=== PATIENT | female | born 1980 | race African-American/Black ===

== ENCOUNTER → 2019-11-17 | Day surgery (SDC) | payer OTHER ==
--- NOTE | 2019-11-19 01:50 | OP ---
DATE OF OPERATION: 11/17/2019 PREOPERATIVE DIAGNOSIS: Right breast intraductal retroareolar mass. POSTOPERATIVE DIAGNOSIS: Right breast intraductal retroareolar mass. PROCEDURE: Right breast ultrasound-guided core biopsy with bowtie clip placement. ANESTHESIA: Local. ATTENDING SURGEON: Bello Brooks MD ESTIMATED BLOOD LOSS: Minimal. COMPLICATIONS: None. DESCRIPTION OF PROCEDURE: Patient was made aware of the risks and benefits of the procedure and consented. She was placed in the supine position. Under sterile conditions with 2% lidocaine for local anesthesia, a small lily was made in the skin. Using a 13-gauge suction biopsy device via lateral approach under ultrasound guidance, multiple cores were obtained and submitted to pathology. Under ultrasound guidance, a bowtie clip was placed into the biopsy region. Steri-Strips and sterile bandage was applied. We will contact her with the results. BELLO BROOKS M.D. [id number]
--- NOTE | 2019-11-20 15:05 | PATH ---
Surgical Pathology Report Patient Name: EMILIE CORRIGAN [facility]. Rec. #: [id number] /Age/Gender: 1980 (Age: 39) / F Account: [id number] Location: [facility] RADIOLOGY U Taken: 11/17/2019 Received: 11/17/2019 Reported: 11/20/2019 Physicians: Bello Brooks M.D. Specimen(s) Received RIGHT BREAST RETRO CORE BX Clinical History None given Final Diagnosis BREAST, RIGHT, RETRO, CORE BIOPSY: BENIGN BREAST TISSUE SHOWING CYST WITH INSPISSATED CONTENTS. NEGATIVE FOR MALIGNANCY. Note: See also concurrent left breast biopsy ([id number]). Electronically Signed Cassie Arrieta M.D. Gross Description Received in formalin labeled "right breast biopsy retro", is a 2.3 x 1.4 x 0.3 cm aggregate of fragments of fibroadipose tissue admixed with abundant alvraado white material. The formalin is filtered and the specimen is entirely submitted in 2 cassettes. Time to formalin fixation: Not given Total formalin fixation time: Approximately 6 hours. /11/17/2019 saudi/11/17/2019
== END | disposition home or self-care (01) ==
LOC: FRADUS-SUR 13:21
PROVIDERS: ATTEND Surgery Surgical Oncology
PROC: 0HBT3ZX Excision of Right Breast, Percutaneous Approach, Diagnostic (ICD-10-PCS; principal; 2019-11-17)
DX: N60.01 Solitary cyst of right breast (principal); N63.10 Unspecified lump in the right breast, unspecified quadrant
CPT/HCPCS: 19083; 87899; 88305-TC; A4648

== ENCOUNTER 2019-12-07 10:53 | Day surgery (SDC) | payer OTHER ==
[2019-12-07 11:52] VITALS: BMI 35.6
[2019-12-07 12:00] LABS: BASO % 0.5 % (0-2.0); EOS % 1.4 % (0-4.5); HEMATOCRIT 40.5 % (32.4-45.2); HEMOGLOBIN 13.6 GM/dL (10.7-15.3); LYMPH % 36.2 % (8-40); MCHC 33.6 g/dl (32.0-36.0); MEAN CELL VOLUME 89.3 fl (80-96); MEAN PLT VOLUME 7.8 fl (7.5-11.1); MONO % 9.2 % (3.8-10.2); NEUT % 52.7 % (42.8-82.8); PLATELET COUNT 355 K/MM3 (134-434); RBC 4.53 M/mm3 (3.60-5.2); RDW 14.1 % (11.6-15.6); WHITE BLOOD COUNT 6.1 K/mm3 (4.0-10.0)
[2019-12-07 12:08] LABS: INR 0.97 (0.83-1.09); PROTHROMBIN TIME (PATIENT) 11.5 SEC (9.7-13.0)
[2019-12-07 16:48] VITALS: BP 109/79; PULSE 82; TEMP 97.2
== END 2019-12-07 17:00 | disposition home or self-care (01) ==
LOC: JRADIR 10:53
PROVIDERS: ATTEND Internal Medicine Hematology & Oncology
PROC: 02HV33Z Insertion of Infusion Device into Superior Vena Cava, Percutaneous Approach (ICD-10-PCS; principal; 2019-12-07)
DX: C50.912 Malignant neoplasm of unspecified site of left female breast (principal)
CPT/HCPCS: 36561; C1788; 36415; 77001-TC-FY; 84703; 85025; 85610

== ENCOUNTER 2019-12-08 07:19 | Day surgery (SDC) | payer OTHER ==
[2019-12-08 08:07] LABS: BASO % 0.6 % (0-2.0); EOS % 1.5 % (0-4.5); HEMATOCRIT 38.2 % (32.4-45.2); HEMOGLOBIN 12.8 GM/dL (10.7-15.3); MCH 29.7 pg (25.7-33.7); MCHC 33.3 g/dl (32.0-36.0); MEAN CELL VOLUME 89.2 fl (80-96); MEAN PLT VOLUME 7.6 fl (7.5-11.1); MONO % 8.6 % (3.8-10.2); NEUT % 55.3 % (42.8-82.8); PLATELET COUNT 333 K/MM3 (134-434); RBC 4.29 M/mm3 (3.60-5.2); RDW 14.3 % (11.6-15.6); WHITE BLOOD COUNT 5.9 K/mm3 (4.0-10.0)
[2019-12-08 08:32] LABS: ALBUMIN 3.6 g/dl (3.4-5.0); BILIRUBIN,DIRECT 0.1 mg/dL (0.0-0.2); BILIRUBIN,TOTAL 0.3 mg/dL (0.2-1); BLOOD UREA NITROGEN 7.7 mg/dL (7-18); MAGNESIUM 2.2 mg/dL (1.8-2.4); POTASSIUM 3.8 mmol/L (3.5-5.1); TOT PROT 7.2 g/dl (6.4-8.2)
[2019-12-08] MEDS ORDERED: ONDANSETRON 4 MG/2 ML VIAL IVPB ONE (08:58)
[2019-12-08] MEDS ORDERED: GOSERELIN ACETATE 3.6 MG IMPLANT SYRINGE SQ ONE (09:00)
[2019-12-08] MEDS ORDERED: FAMOTIDINE 20 MG/50 ML IVPB 20 MG/50 ML MG IVPB ONE (09:00)
[2019-12-08] MEDS ORDERED: DEXAMETHASONE INJECTION 10 MG, DIPHENHYDRAMINE 50 MG in SODIUM CHLORIDE 100 ML IVPB ONE (09:00)
[2019-12-08] MEDS ORDERED: LIDOCAINE HCL 1%, 10 MG/ML (20ML VIAL) ID ONE (09:30)
[2019-12-08] MEDS ORDERED: PACLITAXEL IVPB ONE (09:30)
[2019-12-08] MEDS ORDERED: SODIUM CHLORIDE IVPB ONE (09:30)
[2019-12-08 13:34] VITALS: TEMP 98.9
[2019-12-08 13:35] VITALS: BP 117/79; PULSE 80
== END 2019-12-08 12:15 | disposition home or self-care (01) ==
LOC: JONCCHEMO 07:19
PROVIDERS: ATTEND Internal Medicine Hematology & Oncology
DX: Z51.11 Encounter for antineoplastic chemotherapy (principal); C50.912 Malignant neoplasm of unspecified site of left female breast
CPT/HCPCS: 36415; 80048; 80076; 83735; 84703; 85025; 96366; 96367; 96402; 96413; J1100; J9202

== ENCOUNTER 2019-12-15 07:10 | Day surgery (SDC) | payer OTHER ==
[2019-12-15 09:13] LABS: BASO % 0.8 % (0-2.0); HEMATOCRIT 36.6 % (32.4-45.2); HEMOGLOBIN 12.3 GM/dL (10.7-15.3); LYMPH % 28.3 % (8-40); MCHC 33.7 g/dl (32.0-36.0); MEAN CELL VOLUME 89.1 fl (80-96); MONO % 6.2 % (3.8-10.2); NEUT % 62.7 % (42.8-82.8); PLATELET COUNT 320 K/MM3 (134-434); RBC 4.11 M/mm3 (3.60-5.2); RDW 14.2 % (11.6-15.6); WHITE BLOOD COUNT 6.1 K/mm3 (4.0-10.0)
[2019-12-15] MEDS ORDERED: PACLITAXEL 156 MG in SODIUM CHLORIDE 250 ML IVPB ONE (10:00)
[2019-12-15 10:08] LABS: ALBUMIN 3.6 g/dl (3.4-5.0); BILIRUBIN,TOTAL 0.4 mg/dL (0.2-1); CREATININE 0.8 mg/dL (0.55-1.3); POTASSIUM 3.5 mmol/L (3.5-5.1); TOT PROT 7.4 g/dl (6.4-8.2)
[2019-12-15] MEDS ORDERED: FAMOTIDINE 20 MG/50 ML IVPB 20 MG/50 ML MG IVPB ONE (10:30)
[2019-12-15] MEDS ORDERED: [UNRECOGNIZED DRUG - OTHER] IVPB ONE (10:30)
[2019-12-15] MEDS ORDERED: DIPHENHYDRAMINE IVPB ONE (10:30)
[2019-12-15] MEDS ORDERED: ONDANSETRON IVPB ONE (10:30)
[2019-12-15] MEDS ORDERED: DEXAMETHASONE IVPB ONE (10:30)
[2019-12-15 15:07] VITALS: BP 113/78; PULSE 82; TEMP 98.9
[2019-12-15] MEDS ORDERED: PORTA CATH FLUSH 10 ML IVPUSH ONE (15:07)
== END 2019-12-15 13:15 | disposition home or self-care (01) ==
LOC: JONCCHEMO 07:10
PROVIDERS: ATTEND Internal Medicine Hematology & Oncology
DX: Z51.11 Encounter for antineoplastic chemotherapy (principal); C50.912 Malignant neoplasm of unspecified site of left female breast
CPT/HCPCS: 36415; 80053; 85025; 96367; 96413; J1100

== ENCOUNTER 2019-12-22 07:26 | Day surgery (SDC) | payer OTHER ==
[2019-12-22] MEDS ORDERED: [UNRECOGNIZED DRUG - OTHER] IVPB ONE (09:30)
[2019-12-22] MEDS ORDERED: FAMOTIDINE 20 MG/50 ML IVPB 20 MG/50 ML MG IVPB ONE (09:30)
[2019-12-22] MEDS ORDERED: ONDANSETRON IVPB ONE (09:30)
[2019-12-22] MEDS ORDERED: DEXAMETHASONE SODIUM PHOSPHATE IVPB ONE (09:30)
[2019-12-22 09:44] LABS: EOS % 1.6 % (0-4.5); HEMOGLOBIN 11.8 GM/dL (10.7-15.3); MCH 30.1 pg (25.7-33.7); MCHC 33.6 g/dl (32.0-36.0); MEAN CELL VOLUME 89.5 fl (80-96); MONO % 6.9 % (3.8-10.2); NEUT % 56.5 % (42.8-82.8); PLATELET COUNT 385 K/MM3 (134-434); RBC 3.91 M/mm3 (3.60-5.2); RDW 14.4 % (11.6-15.6); WHITE BLOOD COUNT 5.4 K/mm3 (4.0-10.0)
[2019-12-22] MEDS ORDERED: DEXAMETHASONE SOD PHOSPHATE 10 MG/1 ML VIAL IVPB ONE (09:45)
[2019-12-22] MEDS ORDERED: PACLITAXEL 156 MG in SODIUM CHLORIDE 250 ML IVPB ONE (10:00)
[2019-12-22 10:11] LABS: ALBUMIN 3.6 g/dl (3.4-5.0); BILIRUBIN,TOTAL 0.4 mg/dL (0.2-1); BLOOD UREA NITROGEN 6.9 mg/dL (7-18); CALCIUM 8.9 mg/dL (8.5-10.1); CREATININE 0.9 mg/dL (0.55-1.3); POTASSIUM 3.5 mmol/L (3.5-5.1); TOT PROT 7.2 g/dl (6.4-8.2)
[2019-12-22] MEDS ORDERED: DEXAMETHASONE SODIUM PHOSPHATE 10 MG, ONDANSETRON INJECTION 8 MG, DIPHENHYDRAMINE 50 MG... IVPB ONE (10:15)
[2019-12-22 14:52] VITALS: TEMP 98.8
[2019-12-22 15:48] VITALS: BP 115/62
[2019-12-22 15:49] VITALS: PULSE 78
== END 2019-12-22 13:15 | disposition home or self-care (01) ==
LOC: JONCCHEMO 07:26
PROVIDERS: ATTEND Internal Medicine Hematology & Oncology
PROC: 3E04305 Introduction of Other Antineoplastic into Central Vein, Percutaneous Approach (ICD-10-PCS; principal; 2019-12-22)
PROC: 3E043GC Introduction of Other Therapeutic Substance into Central Vein, Percutaneous Approach (ICD-10-PCS; 2019-12-22)
DX: Z51.11 Encounter for antineoplastic chemotherapy (principal); C50.912 Malignant neoplasm of unspecified site of left female breast; I10 Essential (primary) hypertension
CPT/HCPCS: 36415; 80053; 85025; 96367; 96413; J2405

== ENCOUNTER 2019-12-29 07:17 | Day surgery (SDC) | payer OTHER ==
[2019-12-29 09:16] LABS: BASO % 0.5 % (0-2.0); EOS % 1.1 % (0-4.5); HEMATOCRIT 36.1 % (32.4-45.2); HEMOGLOBIN 12.1 GM/dL (10.7-15.3); LYMPH % 33.1 % (8-40); MCHC 33.5 g/dl (32.0-36.0); MEAN CELL VOLUME 89.6 fl (80-96); MEAN PLT VOLUME 7.4 fl (7.5-11.1); MONO % 6.1 % (3.8-10.2); NEUT % 59.2 % (42.8-82.8); PLATELET COUNT 429 K/MM3 (134-434); RBC 4.03 M/mm3 (3.60-5.2); RDW 14.1 % (11.6-15.6); WHITE BLOOD COUNT 5.4 K/mm3 (4.0-10.0)
[2019-12-29] MEDS ORDERED: DEXAMETHASONE SOD PHOSPHATE 20 MG/5 ML VIAL IVPB ONE (09:26)
[2019-12-29] MEDS ORDERED: ONDANSETRON 4 MG/2 ML VIAL IVPB ONE (09:27)
[2019-12-29 09:52] LABS: ALBUMIN 3.6 g/dl (3.4-5.0); BILIRUBIN,TOTAL 0.2 mg/dL (0.2-1); BLOOD UREA NITROGEN 5.7 mg/dL (7-18); POTASSIUM 3.7 mmol/L (3.5-5.1); TOT PROT 7.1 g/dl (6.4-8.2)
[2019-12-29] MEDS ORDERED: DEXAMETHASONE SODIUM PHOSPHATE IVPB ONE ×2 (10:00)
[2019-12-29] MEDS ORDERED: [UNRECOGNIZED DRUG - OTHER] IVPB ONE (10:00)
[2019-12-29] MEDS ORDERED: [UNRECOGNIZED DRUG - OTHER] IVPB ONE (10:00)
[2019-12-29] MEDS ORDERED: ONDANSETRON IVPB ONE ×2 (10:00)
[2019-12-29] MEDS ORDERED: FAMOTIDINE 20 MG/50 ML IVPB 20 MG/50 ML MG IVPB ONE (10:00)
[2019-12-29] MEDS ORDERED: PACLITAXEL 156 MG in SODIUM CHLORIDE 250 ML IVPB ONE (10:30)
[2019-12-29 14:00] VITALS: BP 110/69; PULSE 78; TEMP 98.8
[2019-12-29] MEDS ORDERED: PORTA CATH FLUSH 10 ML IVPUSH ONE (14:00)
== END 2019-12-29 13:00 | disposition home or self-care (01) ==
LOC: JONCCHEMO 07:17
PROVIDERS: ATTEND Internal Medicine Hematology & Oncology
PROC: 3E04305 Introduction of Other Antineoplastic into Central Vein, Percutaneous Approach (ICD-10-PCS; principal; 2019-12-29)
PROC: 3E043GC Introduction of Other Therapeutic Substance into Central Vein, Percutaneous Approach (ICD-10-PCS; 2019-12-29)
DX: Z51.11 Encounter for antineoplastic chemotherapy (principal); C50.912 Malignant neoplasm of unspecified site of left female breast
CPT/HCPCS: 36415; 80053; 85025; 96367; 96413

== ENCOUNTER 2020-01-05 07:23 | Day surgery (SDC) | payer OTHER ==
[2020-01-05 09:39] LABS: BASO % 0.9 % (0-2.0); EOS % 0.8 % (0-4.5); HEMATOCRIT 37.5 % (32.4-45.2); HEMOGLOBIN 12.6 GM/dL (10.7-15.3); LYMPH % 34.2 % (8-40); MCH 30.1 pg (25.7-33.7); MCHC 33.7 g/dl (32.0-36.0); MEAN CELL VOLUME 89.3 fl (80-96); MEAN PLT VOLUME 7.8 fl (7.5-11.1); NEUT % 58.1 % (42.8-82.8); PLATELET COUNT 404 K/MM3 (134-434); RDW 14.3 % (11.6-15.6); WHITE BLOOD COUNT 5.9 K/mm3 (4.0-10.0)
[2020-01-05] MEDS ORDERED: GOSERELIN ACETATE 3.6 MG IMPLANT SYRINGE SQ ONE (10:00)
[2020-01-05] MEDS ORDERED: FAMOTIDINE 20 MG/50 ML IVPB 20 MG/50 ML MG IVPB ONE (10:00)
[2020-01-05] MEDS ORDERED: DEXAMETHASONE SODIUM PHOSPHATE IVPB ONE (10:00)
[2020-01-05] MEDS ORDERED: ONDANSETRON IVPB ONE (10:00)
[2020-01-05] MEDS ORDERED: [UNRECOGNIZED DRUG - OTHER] IVPB ONE (10:00)
[2020-01-05] MEDS ORDERED: LIDOCAINE HCL 1%, 10 MG/ML (20ML VIAL) ID ONE (10:00)
[2020-01-05 10:19] LABS: POTASSIUM 3.3 mmol/L (3.5-5.1)
[2020-01-05 10:25] LABS: BILIRUBIN,TOTAL 0.3 mg/dL (0.2-1); BLOOD UREA NITROGEN 7.9 mg/dL (7-18); CALCIUM 9.2 mg/dL (8.5-10.1); CREATININE 0.9 mg/dL (0.55-1.3); TOT PROT 7.8 g/dl (6.4-8.2)
[2020-01-05] MEDS ORDERED: PACLITAXEL 156 MG in SODIUM CHLORIDE 250 ML IVPB ONE (10:30)
[2020-01-05] MEDS ORDERED: DEXAMETHASONE SOD PHOSPHATE 4 MG/1 ML VIAL IVPB ONE (10:30)
[2020-01-05] MEDS ORDERED: DEXAMETHASONE SODIUM PHOSPHATE 10 MG, ONDANSETRON INJECTION 8 MG, DIPHENHYDRAMINE 50 MG... IVPB ONE (10:45)
[2020-01-05] MEDS ORDERED: POTASSIUM CHLORIDE TABS 20 MEQ TABLET.ER (FP) PO ONE (11:45)
[2020-01-05] MEDS ORDERED: PORTA CATH FLUSH 10 ML IVPUSH ONE (14:15)
[2020-01-05 14:16] VITALS: BP 123/82; PULSE 82; TEMP 98.8
== END 2020-01-05 13:45 | disposition home or self-care (01) ==
LOC: JONCCHEMO 07:23
PROVIDERS: ATTEND Internal Medicine Hematology & Oncology
DX: Z51.11 Encounter for antineoplastic chemotherapy (principal); C50.912 Malignant neoplasm of unspecified site of left female breast
CPT/HCPCS: 36415; 80053; 85025; 96367; 96402; 96413; J9202

== ENCOUNTER 2020-01-12 07:29 | Day surgery (SDC) | payer OTHER ==
[2020-01-12 09:22] LABS: EOS % 1.3 % (0-4.5); HEMATOCRIT 34.9 % (32.4-45.2); HEMOGLOBIN 11.9 GM/dL (10.7-15.3); LYMPH % 36.9 % (8-40); MCH 30.6 pg (25.7-33.7); MCHC 34.1 g/dl (32.0-36.0); MEAN CELL VOLUME 89.9 fl (80-96); MEAN PLT VOLUME 7.8 fl (7.5-11.1); MONO % 6.5 % (3.8-10.2); NEUT % 54.3 % (42.8-82.8); PLATELET COUNT 348 K/MM3 (134-434); RBC 3.88 M/mm3 (3.60-5.2); RDW 14.4 % (11.6-15.6); WHITE BLOOD COUNT 6.3 K/mm3 (4.0-10.0)
[2020-01-12 09:50] LABS: ALBUMIN 3.6 g/dl (3.4-5.0); BILIRUBIN,TOTAL 0.3 mg/dL (0.2-1); BLOOD UREA NITROGEN 10.5 mg/dL (7-18); CALCIUM 9.1 mg/dL (8.5-10.1); CREATININE 0.9 mg/dL (0.55-1.3); MAGNESIUM 2.2 mg/dL (1.8-2.4); POTASSIUM 3.8 mmol/L (3.5-5.1); TOT PROT 6.9 g/dl (6.4-8.2)
[2020-01-12] MEDS ORDERED: FAMOTIDINE 20 MG/50 ML IVPB 20 MG/50 ML MG IVPB ONE (10:00)
[2020-01-12] MEDS ORDERED: ONDANSETRON IVPB ONE (10:00)
[2020-01-12] MEDS ORDERED: [UNRECOGNIZED DRUG - OTHER] IVPB ONE (10:00)
[2020-01-12] MEDS ORDERED: DEXAMETHASONE SODIUM PHOSPHATE IVPB ONE (10:00)
[2020-01-12] MEDS ORDERED: PACLITAXEL 144 MG in SODIUM CHLORIDE 250 ML IVPB ONE (10:30)
[2020-01-12 14:50] VITALS: TEMP 98.8
[2020-01-12 14:54] VITALS: BP 113/72; PULSE 75
[2020-01-12] MEDS ORDERED: PORTA CATH FLUSH 10 ML IVPUSH ONE (14:54)
== END 2020-01-12 13:05 | disposition home or self-care (01) ==
LOC: JONCCHEMO 07:29
PROVIDERS: ATTEND Internal Medicine Hematology & Oncology
DX: Z51.11 Encounter for antineoplastic chemotherapy (principal); C50.912 Malignant neoplasm of unspecified site of left female breast
CPT/HCPCS: 36415; 80053; 83735; 85025; 96367; 96413

== ENCOUNTER 2020-01-19 07:07 | Day surgery (SDC) | payer OTHER ==
[2020-01-19] MEDS ORDERED: DEXAMETHASONE SODIUM PHOSPHATE IVPB ONE (10:00)
[2020-01-19] MEDS ORDERED: FAMOTIDINE 20 MG/50 ML IVPB 20 MG/50 ML MG IVPB ONE (10:00)
[2020-01-19] MEDS ORDERED: [UNRECOGNIZED DRUG - OTHER] IVPB ONE (10:00)
[2020-01-19] MEDS ORDERED: ONDANSETRON IVPB ONE (10:00)
[2020-01-19 10:01] LABS: BASO % 0.7 % (0-2.0); HEMATOCRIT 36.3 % (32.4-45.2); HEMOGLOBIN 12.2 GM/dL (10.7-15.3); LYMPH % 28.3 % (8-40); MCH 29.8 pg (25.7-33.7); MCHC 33.6 g/dl (32.0-36.0); MEAN CELL VOLUME 88.6 fl (80-96); MEAN PLT VOLUME 7.9 fl (7.5-11.1); MONO % 5.6 % (3.8-10.2); NEUT % 64.4 % (42.8-82.8); PLATELET COUNT 382 K/MM3 (134-434); RBC 4.09 M/mm3 (3.60-5.2); RDW 14.4 % (11.6-15.6); WHITE BLOOD COUNT 8.2 K/mm3 (4.0-10.0)
[2020-01-19] MEDS ORDERED: PACLITAXEL 150 MG in SODIUM CHLORIDE 250 ML IVPB ONE (10:30)
[2020-01-19 10:31] LABS: ALBUMIN 3.7 g/dl (3.4-5.0); BILIRUBIN,TOTAL 0.2 mg/dL (0.2-1); BLOOD UREA NITROGEN 19.3 mg/dL (7-18); CALCIUM 9.6 mg/dL (8.5-10.1); POTASSIUM 3.5 mmol/L (3.5-5.1); TOT PROT 7.4 g/dl (6.4-8.2)
[2020-01-19 14:22] VITALS: TEMP 98.5
[2020-01-19 14:24] VITALS: BP 123/78; PULSE 89
== END 2020-01-19 13:30 | disposition home or self-care (01) ==
LOC: JONCCHEMO 07:07
PROVIDERS: ATTEND Internal Medicine Hematology & Oncology
DX: Z51.11 Encounter for antineoplastic chemotherapy (principal); C50.912 Malignant neoplasm of unspecified site of left female breast
CPT/HCPCS: 36415; 80053; 85025; 96367; 96375; 96413

== ENCOUNTER 2020-01-26 07:31 | Day surgery (SDC) | payer OTHER ==
[2020-01-26] MEDS ORDERED: DEXAMETHASONE IVPB ONE (10:00)
[2020-01-26] MEDS ORDERED: ONDANSETRON IVPB ONE (10:00)
[2020-01-26] MEDS ORDERED: [UNRECOGNIZED DRUG - OTHER] IVPB ONE (10:00)
[2020-01-26] MEDS ORDERED: FAMOTIDINE 20 MG/50 ML IVPB 20 MG/50 ML MG IVPB ONE (10:00)
[2020-01-26] MEDS ORDERED: DIPHENHYDRAMINE IVPB ONE (10:00)
[2020-01-26 10:26] LABS: BASO % 0.8 % (0-2.0); HEMATOCRIT 34.9 % (32.4-45.2); HEMOGLOBIN 11.6 GM/dL (10.7-15.3); MCH 29.6 pg (25.7-33.7); MCHC 33.1 g/dl (32.0-36.0); MEAN CELL VOLUME 89.5 fl (80-96); MEAN PLT VOLUME 7.8 fl (7.5-11.1); MONO % 4.3 % (3.8-10.2); NEUT % 61.9 % (42.8-82.8); PLATELET COUNT 347 K/MM3 (134-434); RDW 14.7 % (11.6-15.6); WHITE BLOOD COUNT 6.8 K/mm3 (4.0-10.0)
[2020-01-26] MEDS ORDERED: PACLITAXEL 150 MG in SODIUM CHLORIDE 250 ML IVPB ONE (10:30)
[2020-01-26 10:58] LABS: ALBUMIN 3.6 g/dl (3.4-5.0); BILIRUBIN,TOTAL 0.2 mg/dL (0.2-1); BLOOD UREA NITROGEN 7.1 mg/dL (7-18); CALCIUM 8.9 mg/dL (8.5-10.1); CREATININE 0.9 mg/dL (0.55-1.3); POTASSIUM 3.8 mmol/L (3.5-5.1); TOT PROT 6.9 g/dl (6.4-8.2)
[2020-01-26 15:30] VITALS: TEMP 98.3
[2020-01-26 16:06] VITALS: BP 121/68; PULSE 70
[2020-01-26] MEDS ORDERED: PORTA CATH FLUSH 10 ML IVPUSH ONE (16:06)
== END 2020-01-26 14:00 | disposition home or self-care (01) ==
LOC: JONCCHEMO 07:31
PROVIDERS: ATTEND Internal Medicine Hematology & Oncology
PROC: 3E04305 Introduction of Other Antineoplastic into Central Vein, Percutaneous Approach (ICD-10-PCS; principal; 2020-01-26)
PROC: 3E043GC Introduction of Other Therapeutic Substance into Central Vein, Percutaneous Approach (ICD-10-PCS; 2020-01-26)
DX: Z51.11 Encounter for antineoplastic chemotherapy (principal); C50.912 Malignant neoplasm of unspecified site of left female breast
CPT/HCPCS: 36415; 80053; 85025; 96367; 96413; J1100

== ENCOUNTER 2020-02-02 07:18 | Day surgery (SDC) | payer OTHER ==
[2020-02-02 09:14] LABS: EOS % 1.4 % (0-4.5); HEMATOCRIT 35.1 % (32.4-45.2); LYMPH % 35.5 % (8-40); MCH 30.9 pg (25.7-33.7); MCHC 34.3 g/dl (32.0-36.0); MEAN PLT VOLUME 7.7 fl (7.5-11.1); MONO % 8.6 % (3.8-10.2); NEUT % 53.5 % (42.8-82.8); PLATELET COUNT 349 K/MM3 (134-434); RDW 14.6 % (11.6-15.6); WHITE BLOOD COUNT 6.8 K/mm3 (4.0-10.0)
[2020-02-02] MEDS ORDERED: FAMOTIDINE 20 MG/50 ML IVPB 20 MG/50 ML MG IVPB ONE (09:30)
[2020-02-02] MEDS ORDERED: [UNRECOGNIZED DRUG - OTHER] IVPB ONE (09:30)
[2020-02-02] MEDS ORDERED: DEXAMETHASONE SODIUM PHOSPHATE IVPB ONE (09:30)
[2020-02-02] MEDS ORDERED: ONDANSETRON IVPB ONE (09:30)
[2020-02-02 09:52] LABS: BILIRUBIN,TOTAL 0.3 mg/dL (0.2-1); BLOOD UREA NITROGEN 12.1 mg/dL (7-18); CALCIUM 9.1 mg/dL (8.5-10.1); CREATININE 0.9 mg/dL (0.55-1.3); POTASSIUM 3.4 mmol/L (3.5-5.1); TOT PROT 7.4 g/dl (6.4-8.2)
[2020-02-02] MEDS ORDERED: PACLITAXEL 150 MG in SODIUM CHLORIDE 250 ML IVPB ONE (10:00)
[2020-02-02] MEDS ORDERED: LIDOCAINE HCL 1%, 10 MG/ML (20ML VIAL) ID ONE (10:00)
[2020-02-02] MEDS ORDERED: GOSERELIN ACETATE 3.6 MG IMPLANT SYRINGE SQ ONE (10:00)
[2020-02-02 13:55] VITALS: BP 126/89; PULSE 109; TEMP 98.8
[2020-02-02] MEDS ORDERED: PORTA CATH FLUSH 10 ML IVPUSH ONE (13:55)
== END 2020-02-02 13:25 | disposition home or self-care (01) ==
LOC: JONCCHEMO 07:18
PROVIDERS: ATTEND Internal Medicine Hematology & Oncology
DX: Z51.11 Encounter for antineoplastic chemotherapy (principal); C50.912 Malignant neoplasm of unspecified site of left female breast
CPT/HCPCS: 36415; 80053; 85025; 96367; 96372; 96413; J2405; J9202

== ENCOUNTER 2020-02-16 06:40 | Day surgery (SDC) | payer OTHER ==
--- OUTSIDE RECORDS SUMMARY | 2020-02-16 06:44 | XMS ---
:1980 Demographics Address [address] [place] [address] Preferred Language Greek Marital Status Unknown Voodoo Affiliation NO Race BL Ethnic Group Unknown Author Organization [facility] Support Name Relationship Address Phone [facility]available [address] [place] [address] BRIELLE CORRIGAN MOTHER [address] [place] [address] [facility]available [address] [place] [address] [facility] Unavailable [address] [facility] [facility] [place] [address] ISAAC HIGUERA [address] [place] [address] Re-disclosure Warning The records that you are about to access may contain information from federally- assisted alcohol or drug abuse programs. If such information is present, then the following federally mandated warning applies: This information has been disclosed to you from records protected by federal confidentiality rules (42 CFR part 2). The federal rules prohibit you from making any further disclosure of this information unless further disclosure is expressly permitted by the written consent of the person to whom it pertains or as otherwise permitted by 42 CFR part 2. A general authorization for the release of medical or other information is NOT sufficient for this purpose. The Federal rules restrict any use of the information to criminally investigate or prosecute any alcohol or drug abuse patient.The records that you are about to access may contain highly sensitive health information, the redisclosure of which is protected by Article 27-F of the [facility] Public Health law. If you continue you may haveaccess to information: Regarding HIV / AIDS; Provided by facilities licensed or operated by the [facility] Office of Mental Health; or Provided by the [facility] Office for People With Developmental Disabilities. If such information is present, then the following [facility] mandated warning applies: This information has been disclosed to you from confidential records which are protected by state law. State law prohibits you from making any further disclosure of this information without the specific written consent of the person to whom it pertains, or as otherwise permitted by law. Any unauthorized further disclosure in violation of state law may result in a fine or fpc sentence or both. A general authorization for the release of medical or other information is NOT sufficient authorization for further disclosure. Insurance Providers Payer name Policy type Policy ID Covered Covered libertarian's Policy P gentry / Coverage libertarian ID relationship to [place] Inf ormation type [place] LOCAL 1199 - [id number] SP [id number] [facility] 1199 - [id number] SP [id number] [facility] 1199 - [id number] SP [id number] [facility] [id number] SP [id number] Results ID Date Data Source [id number] 12/05/2019 09:46:00 AM EDT [facility] alth System Name Value Range Interpretation Code Description Data Xuan rce(s) Supporting Document(s ) SARS-CoV-2 [facility] Ql ABENA+probe [facility] by [facility]. ID Date Data Source [id number] 11/28/2019 10:23:00 AM EDT [facility]th System Name Value Range Interpretation Code Description Data Xuan rce(s) Supporting Document(s ) SARS-CoV-2 [facility] Ql ABENA+probe This lab [facility] reported by [facility]. ID Date Data Source [id number] 11/23/2019 09:07:00 AM EDT [facility] alth System Name Value Range Interpretation Code Description Data Xuan rce(s) Supporting Document(s ) SARS-CoV-2 [facility] Ql ABENA+probe This lab was [facility] a [facility] reported by [facility]. ID Date Data Source [id number] 11/22/2019 03:35:00 PM EDT [facility]th System Name Value Range Interpretation Code Description Data Xuan rce(s) Supporting Document(s ) SARS-CoV-2 [facility] Ql ABENA+probe This lab was [facility] a nd reported by [facility]. Procedure
[2020-02-16 09:28] LABS: BASO % 0.8 % (0-2.0); EOS % 1.2 % (0-4.5); HEMATOCRIT 33.5 % (32.4-45.2); HEMOGLOBIN 11.4 GM/dL (10.7-15.3); LYMPH % 32.3 % (8-40); MCHC 34.1 g/dl (32.0-36.0); MEAN CELL VOLUME 90.9 fl (80-96); MEAN PLT VOLUME 7.8 fl (7.5-11.1); MONO % 6.3 % (3.8-10.2); NEUT % 59.4 % (42.8-82.8); PLATELET COUNT 395 K/MM3 (134-434); RBC 3.69 M/mm3 (3.60-5.2); RDW 15.2 % (11.6-15.6); WHITE BLOOD COUNT 7.4 K/mm3 (4.0-10.0)
[2020-02-16] MEDS ORDERED: DEXAMETHASONE SODIUM PHOSPHATE IVPB ONE (09:30)
[2020-02-16] MEDS ORDERED: FAMOTIDINE 20 MG/50 ML IVPB 20 MG/50 ML MG IVPB ONE (09:30)
[2020-02-16] MEDS ORDERED: ONDANSETRON IVPB ONE (09:30)
[2020-02-16] MEDS ORDERED: [UNRECOGNIZED DRUG - OTHER] IVPB ONE (09:30)
[2020-02-16 09:53] LABS: ALBUMIN 3.7 g/dl (3.4-5.0); BILIRUBIN,TOTAL 0.4 mg/dL (0.2-1); BLOOD UREA NITROGEN 8.7 mg/dL (7-18); CALCIUM 9.4 mg/dL (8.5-10.1); CREATININE 0.9 mg/dL (0.55-1.3); MAGNESIUM 2.2 mg/dL (1.8-2.4); POTASSIUM 3.3 mmol/L (3.5-5.1)
[2020-02-16] MEDS ORDERED: PACLITAXEL 150 MG in SODIUM CHLORIDE 250 ML IVPB ONE (10:00)
[2020-02-16 11:42] LABS: PLATELET ESTIMATE NORMAL
[2020-02-16 14:39] VITALS: TEMP 98.4
[2020-02-16 14:40] VITALS: BP 129/71; PULSE 95
== END 2020-02-16 13:10 | disposition home or self-care (01) ==
LOC: JONCCHEMO 06:40
PROVIDERS: ATTEND Internal Medicine Hematology & Oncology
PROC: 3E04305 Introduction of Other Antineoplastic into Central Vein, Percutaneous Approach (ICD-10-PCS; principal; 2020-02-16)
PROC: 3E043GC Introduction of Other Therapeutic Substance into Central Vein, Percutaneous Approach (ICD-10-PCS; 2020-02-16)
DX: Z51.11 Encounter for antineoplastic chemotherapy (principal); C50.912 Malignant neoplasm of unspecified site of left female breast; I10 Essential (primary) hypertension
CPT/HCPCS: 36415; 80053; 83735; 85025; 96367; 96413; J2405

== ENCOUNTER 2020-02-23 06:46 | Day surgery (SDC) | payer OTHER ==
--- OUTSIDE RECORDS SUMMARY | 2020-02-23 06:53 | XMS ---
:1980 Demographics Address [address] [place] [address] Preferred Language Chadian Marital Status Unknown Rastafarian Affiliation NO Race BL Ethnic Group Unknown Author Organization [facility] Support Name Relationship Address Phone [facility] Unavailable [address] [address] BRIELLE CORRIGAN MOTHER [address] [place] [address] [facility] Unavailable [address] [place] [address] [facility] Unavailable [address] [facility] [place] [address] ISAAC HIGUERA [address] [place] [address] Re-disclosure Warning The records that you are [...] is protected by Article 27-F of the [facility] Public Health law. If you continue you may haveaccess to information: Regarding HIV / AIDS; Provided by facilities licensed or operated by the [facility] Office of Mental Health; or Provided by the [facility] Office for People With Developmental Disabilities. If such information is present, then the following [facility] mandated warning applies: This information [...] law may result in a fine or long term sentence or both. A general authorization for the release of medical or other information is NOT sufficient authorization for further disclosure. Insurance Providers Payer name Policy type Policy ID Covered Covered green party's Policy P gentry / Coverage green party ID relationship to [place] Inf ormation type [place] LOCAL 1199 - [id number] SP [id number] [facility] [id number] - [id number] SP [id number] [facility] 1199 - [id number] SP [id number] [facility] [id number] SP [id number] Results ID Date Data Source [id number] 12/05/2019 09:46:00 AM EDT [facility] alth System Name Value Range Interpretation Code Description Data Xuan rce(s) Supporting Document(s ) SARS-CoV-2 [facility] Resp Health System Ql ABENA+probe This lab was ordered by [facility] a nd reported by [facility]. ID Date Data Source [id number] 11/28/2019 10:23:00 AM EDT [facility] alth System Name Value Range Interpretation Code Description Data Xuan rce(s) Supporting Document(s ) SARS-CoV-2 [facility] Ql ABENA+probe This lab was ordered by [facility] a nd reported by [facility]. ID Date Data Source [id number] 11/23/2019 09:07:00 AM EDT [facility]th System Name Value Range Interpretation Code Description Data Xuan rce(s) Supporting Document(s ) SARS-CoV-2 [facility] Ql ABENA+probe This lab was ordered by [facility] a nd reported by [facility]. ID Date Data Source [id number] 11/22/2019 03:35:00 PM EDT [facility] System Name Value Range Interpretation Code Description Data Xuan rce(s) Supporting Document(s ) SARS-CoV-2 [facility] Ql ABENA+probe This lab was ordered by [facility] a nd reported by [facility]. Procedure
[2020-02-23 09:29] LABS: BASO % 1.1 % (0-2.0); EOS % 1.3 % (0-4.5); HEMATOCRIT 32.5 % (32.4-45.2); HEMOGLOBIN 11.3 GM/dL (10.7-15.3); LYMPH % 33.5 % (8-40); MCH 31.6 pg (25.7-33.7); MCHC 34.7 g/dl (32.0-36.0); MEAN PLT VOLUME 7.6 fl (7.5-11.1); MONO % 6.1 % (3.8-10.2); PLATELET COUNT 413 K/MM3 (134-434); RBC 3.57 M/mm3 (3.60-5.2); RDW 15.5 % (11.6-15.6); WHITE BLOOD COUNT 7.2 K/mm3 (4.0-10.0)
[2020-02-23 09:46] LABS: ALBUMIN 3.7 g/dl (3.4-5.0); BILIRUBIN,TOTAL 0.5 mg/dL (0.2-1); BLOOD UREA NITROGEN 8.6 mg/dL (7-18); CREATININE 0.9 mg/dL (0.55-1.3); POTASSIUM 3.7 mmol/L (3.5-5.1)
[2020-02-23] MEDS ORDERED: ONDANSETRON IVPB ONE (10:00)
[2020-02-23] MEDS ORDERED: DEXAMETHASONE SODIUM PHOSPHATE IVPB ONE (10:00)
[2020-02-23] MEDS ORDERED: FAMOTIDINE 20 MG/50 ML IVPB 20 MG/50 ML MG IVPB ONE (10:00)
[2020-02-23] MEDS ORDERED: [UNRECOGNIZED DRUG - OTHER] IVPB ONE (10:00)
[2020-02-23] MEDS ORDERED: PACLITAXEL 150 MG in SODIUM CHLORIDE 250 ML IVPB ONE (10:30)
[2020-02-23 14:35] VITALS: TEMP 98.4
[2020-02-23 14:41] VITALS: BP 119/77; PULSE 94
== END 2020-02-23 13:00 | disposition home or self-care (01) ==
LOC: JONCCHEMO 06:46
PROVIDERS: ATTEND Internal Medicine Hematology & Oncology
DX: Z51.11 Encounter for antineoplastic chemotherapy (principal); C50.912 Malignant neoplasm of unspecified site of left female breast
CPT/HCPCS: 36415; 80053; 83735; 85025; 96367; 96413

== ENCOUNTER 2020-03-08 07:26 | Day surgery (SDC) | payer OTHER ==
--- OUTSIDE RECORDS SUMMARY | 2020-03-08 07:28 | XMS ---
:1980 Demographics Address [address] [place] [address] Preferred Language Kosovan Marital Status Unknown Congregational Affiliation NO Race BL Ethnic Group Unknown Author Organization [facility] Support Name Relationship Address Phone [facility] Unavailable [address] [place] [address] BRIELLE CORRIGAN MOTHER [address] [facility] [place] [address] [facility] Unavailable [address] [place] [address] [facility]available [address] [facility] [place] [address] ISAAC HIGUERA [address] [facility] [address] [facility] [address] [phone] [place] [address] Re-disclosure Warning The records that you are [...] is protected by Article 27-F of the [facility] Public Health law. If you continue you may haveaccess to information: Regarding HIV / AIDS; Provided by facilities licensed or operated by the [facility] Office of Mental Health; or Provided by the [facility] Office for People With Developmental Disabilities. If such information is present, then the following [facility] mandated warning applies: This information has been [...] law may result in a fine or senior care sentence or both. A general authorization for the release of medical or other information is NOT sufficient authorization for further disclosure. Insurance Providers Payer name Policy type Policy ID Covered Covered alliance party's Policy P gentry / Coverage alliance party ID relationship to [place] Inf ormation type [place] LOCAL 1199 - [id number] SP [id number] [facility] 1199 - [id number] SP [id number] [facility] 1199 - [id number] SP [id number] [facility] [id number] SP [id number] Results ID Date Data Source [id number] 12/05/2019 09:46:00 AM EDT [facility] alth System Name Value Range Interpretation Code Description Data Xuan rce(s) Supporting Document(s ) SARS-CoV-2 [facility] Ql ABENA+probe This lab was ordered by [facility] a nd reported by [facility]. ID Date Data Source [id number] 11/28/2019 10:23:00 AM EDT [facility] alth System Name Value Range Interpretation Code Description Data Xuan rce(s) Supporting Document(s ) SARS-CoV-2 [facility] Ql ABENA+probe This lab was ordered by [facility] a nd reported by [facility]. ID Date Data Source [id number] 11/23/2019 09:07:00 AM EDT [facility] System Name Value Range Interpretation Code Description Data Xuan rce(s) Supporting Document(s ) SARS-CoV-2 [facility] Ql ABENA+probe This lab was ordered by [facility] a nd reported by [facility]. ID Date Data Source [id number] 11/22/2019 03:35:00 PM EDT [facility] System Name Value Range Interpretation Code Description Data Xuan rce(s) Supporting Document(s ) SARS-CoV-2 [facility] Ql ABENA+probe This lab was ordered by [facility] a nd reported by [facility]. Procedure
[2020-03-08 09:45] LABS: BASO % 0.4 % (0-2.0); EOS % 1.6 % (0-4.5); LYMPH % 28.5 % (8-40); MCH 30.4 pg (25.7-33.7); MCHC 33.4 g/dl (32.0-36.0); MEAN PLT VOLUME 8.2 fl (7.5-11.1); MONO % 9.5 % (3.8-10.2); PLATELET COUNT 430 K/MM3 (134-434); RBC 3.95 M/mm3 (3.60-5.2); RDW 15.8 % (11.6-15.6); WHITE BLOOD COUNT 8.8 K/mm3 (4.0-10.0)
[2020-03-08] MEDS ORDERED: FOSAPREPITANT DIMEGLUMINE 150 MG in SODIUM CHLORIDE 150 ML IVPB ONE (10:00)
[2020-03-08] MEDS ORDERED: DEXAMETHASONE SODIUM PHOSPHATE 10 MG in SODIUM CHLORIDE 50 ML IVPB ONE (10:00)
[2020-03-08] MEDS ORDERED: PALONOSETRON HCL 0.25 MG/5 ML VIAL IVPUSH ONE (10:00)
[2020-03-08 10:09] LABS: ALBUMIN 3.9 g/dl (3.4-5.0); BILIRUBIN,TOTAL 0.5 mg/dL (0.2-1); BLOOD UREA NITROGEN 8.3 mg/dL (7-18); CALCIUM 9.5 mg/dL (8.5-10.1); MAGNESIUM 2.2 mg/dL (1.8-2.4); POTASSIUM 3.6 mmol/L (3.5-5.1); TOT PROT 7.5 g/dl (6.4-8.2)
[2020-03-08] MEDS ORDERED: SODIUM CHLORIDE 500 ML IV ONE (10:12)
[2020-03-08] MEDS ORDERED: SODIUM CHLORIDE IV ONE (10:30)
[2020-03-08] MEDS ORDERED: DOXORUBICIN HCL IV ONE (10:30)
[2020-03-08] MEDS ORDERED: [UNRECOGNIZED DRUG - OTHER] IVPB ONE (11:00)
[2020-03-08] MEDS ORDERED: CYCLOPHOSPHAMIDE IVPB ONE (11:00)
[2020-03-08] MEDS ORDERED: PEGFILGRASTIM (NEULASTA ONPRO) 6 MG/0.6 ML KIT SQ ONE (11:30)
[2020-03-08 11:45] VITALS: BP 131/86; PULSE 99; TEMP 99.1
[2020-03-08] MEDS ORDERED: PORTA CATH FLUSH 10 ML IVPUSH ONE (12:15)
[2020-03-08] MEDS ORDERED: GOSERELIN ACETATE 3.6 MG IMPLANT SYRINGE SQ ONE (13:30)
[2020-03-08] MEDS ORDERED: LIDOCAINE HCL 1%, 10 MG/ML (20ML VIAL) ID ONE (13:30)
[2020-03-11 18:08] LABS: HEP B CORE AB, TOT Negative (Negative)
== END 2020-03-08 15:15 | disposition home or self-care (01) ==
LOC: JONCCHEMO 07:26
PROVIDERS: ATTEND Internal Medicine Hematology & Oncology
PROC: 3E04305 Introduction of Other Antineoplastic into Central Vein, Percutaneous Approach (ICD-10-PCS; principal; 2020-03-08)
PROC: 3E043GC Introduction of Other Therapeutic Substance into Central Vein, Percutaneous Approach (ICD-10-PCS; 2020-03-08)
PROC: 3E0437Z Introduction of Electrolytic and Water Balance Substance into Central Vein, Percutaneous Approach (ICD-10-PCS; 2020-03-08)
PROC: 3E013GC Introduction of Other Therapeutic Substance into Subcutaneous Tissue, Percutaneous Approach (ICD-10-PCS; 2020-03-08)
PROC: 3E01305 Introduction of Other Antineoplastic into Subcutaneous Tissue, Percutaneous Approach (ICD-10-PCS; 2020-03-08)
DX: Z51.11 Encounter for antineoplastic chemotherapy (principal); C50.912 Malignant neoplasm of unspecified site of left female breast; I10 Essential (primary) hypertension
CPT/HCPCS: 36415; 36598; 80053; 83735; 84703; 85025; 86704; 86706; 86707; 86708; 86709; 86803; 87340; 96361; 96372; 96375; 96402; 96413; 96417; J1453; J2469; J2505; J9070; J9202

== ENCOUNTER 2020-04-05 07:14 | Day surgery (SDC) | payer OTHER ==
[~2020-04-05 07:14] MED LIST: TBO-FILGRASTIM 480 MCG/0.8 ML DISP.SYRIN SQ ONE
[2020-04-05 09:32] LABS: BASO % 0.7 % (0-2.0); EOS % 0.9 % (0-4.5); HEMATOCRIT 35.9 % (32.4-45.2); HEMOGLOBIN 11.8 GM/dL (10.7-15.3); LYMPH % 22.5 % (8-40); MCH 30.4 pg (25.7-33.7); MEAN CELL VOLUME 92.2 fl (80-96); MEAN PLT VOLUME 7.5 fl (7.5-11.1); MONO % 14.7 % (3.8-10.2); NEUT % 61.2 % (42.8-82.8); PLATELET COUNT 300 K/MM3 (134-434); RDW 16.8 % (11.6-15.6); WHITE BLOOD COUNT 6.8 K/mm3 (4.0-10.0)
[2020-04-05] MEDS ORDERED: SODIUM CHLORIDE 500 ML IV STA (09:38)
[2020-04-05] MEDS ORDERED: GOSERELIN ACETATE 3.6 MG IMPLANT SYRINGE SQ ONE (10:00)
[2020-04-05] MEDS ORDERED: LIDOCAINE HCL 1%, 10 MG/ML (20ML VIAL) ID ONE (10:00)
[2020-04-05 10:02] LABS: CHOLESTEROL 230 mg/dL (50-200)
[2020-04-05 10:03] LABS: LDL CHOLESTEROL (ONLY SJRH) 161 mg/dL (5-100); TRIGLYCERIDES 171 mg/dL (0-150)
[2020-04-05 10:07] LABS: HDL CHOLESTEROL 45 mg/dL (40-60)
[2020-04-05 10:16] LABS: ALBUMIN 3.9 g/dl (3.4-5.0); BILIRUBIN,TOTAL 0.2 mg/dL (0.2-1); BLOOD UREA NITROGEN 13.5 mg/dL (7-18); CALCIUM 9.5 mg/dL (8.5-10.1); CREATININE 1.1 mg/dL (0.55-1.3); MAGNESIUM 2.1 mg/dL (1.8-2.4); POTASSIUM 3.6 mmol/L (3.5-5.1); TOT PROT 7.1 g/dl (6.4-8.2)
[2020-04-05 10:17] LABS: ANISOCYTOSIS 0; MACROCYTOSIS 0; PLATELET ESTIMATE NORMAL
[2020-04-05] MEDS ORDERED: DEXAMETHASONE SODIUM PHOSPHATE 10 MG in SODIUM CHLORIDE 50 ML IVPB ONE (10:45)
[2020-04-05] MEDS ORDERED: FOSAPREPITANT DIMEGLUMINE 150 MG in SODIUM CHLORIDE 150 ML IVPB ONE (12:00)
[2020-04-05] MEDS ORDERED: PALONOSETRON HCL 0.25 MG/5 ML VIAL IVPUSH ONE (12:00)
[2020-04-05] MEDS ORDERED: CYCLOPHOSPHAMIDE IVPB ONE (13:00)
[2020-04-05] MEDS ORDERED: SODIUM CHLORIDE IV ONE (13:00)
[2020-04-05] MEDS ORDERED: [UNRECOGNIZED DRUG - OTHER] IVPB ONE (13:00)
[2020-04-05] MEDS ORDERED: DOXORUBICIN HCL IV ONE (13:00)
[2020-04-05 15:22] VITALS: TEMP 98.1
[2020-04-05 15:23] VITALS: BP 124/65; PULSE 98
== END 2020-04-05 14:15 | disposition home or self-care (01) ==
LOC: JONCCHEMO 07:14
PROVIDERS: ATTEND Internal Medicine Hematology & Oncology
DX: Z51.11 Encounter for antineoplastic chemotherapy (principal); C50.912 Malignant neoplasm of unspecified site of left female breast
CPT/HCPCS: 36415; 80053; 80061; 83036; 83721; 83735; 85025; 96361; 96367; 96411; 96413; 96417; J1453; J2469; J9070; J9202

== ENCOUNTER 2020-04-06 13:25 | Day surgery (SDC) | payer OTHER ==
[2020-04-06] MEDS ORDERED: PEGFILGRASTIM (NEULASTA) 6 MG/0.6 ML DISP.SYRIN SQ ONE (13:45)
[2020-04-06 15:41] VITALS: BP 138/77; PULSE 99; TEMP 98.8
== END 2020-04-06 14:30 | disposition home or self-care (01) ==
LOC: J7W 13:25 → JONCCHEMO 13:25
PROVIDERS: ATTEND Internal Medicine Hematology & Oncology
PROC: 3E013GC Introduction of Other Therapeutic Substance into Subcutaneous Tissue, Percutaneous Approach (ICD-10-PCS; principal; 2020-04-06)
DX: C50.912 Malignant neoplasm of unspecified site of left female breast (principal); Z76.89 Persons encountering health services in other specified circumstances
CPT/HCPCS: 96372; J2505

== ENCOUNTER 2020-04-20 12:19 | Day surgery (SDC) | payer OTHER ==
[2020-04-20] MEDS ORDERED: PEGFILGRASTIM (NEULASTA) 6 MG/0.6 ML DISP.SYRIN SQ ONE (12:45)
[2020-04-20] MEDS ORDERED: PEGFILGRASTIM-CBQV (UDENYCA) 6 MG/0.6 ML SYRINGE SQ ONE (13:00)
[2020-04-20 13:38] VITALS: BP 151/95; PULSE 91; TEMP 98.1
== END 2020-04-20 13:38 | disposition home or self-care (01) ==
LOC: J7W 12:19 → JONCCHEMO 12:19
PROVIDERS: ATTEND Internal Medicine Hematology & Oncology
PROC: 3E013GC Introduction of Other Therapeutic Substance into Subcutaneous Tissue, Percutaneous Approach (ICD-10-PCS; principal; 2020-04-20)
DX: C50.912 Malignant neoplasm of unspecified site of left female breast (principal); Z76.89 Persons encountering health services in other specified circumstances
CPT/HCPCS: 96372; Q5111

== ENCOUNTER 2020-05-23 08:12 | Day surgery (SDC) | payer OTHER ==
[2020-05-23 09:23] LABS: BASO % 1.1 % (0-2.0); EOS % 6.1 % (0-4.5); HEMATOCRIT 35.4 % (32.4-45.2); HEMOGLOBIN 12.1 GM/dL (10.7-15.3); LYMPH % 22.8 % (8-40); MCH 30.9 pg (25.7-33.7); MCHC 34.2 g/dl (32.0-36.0); MEAN CELL VOLUME 90.5 fl (80-96); MEAN PLT VOLUME 7.2 fl (7.5-11.1); MONO % 15.2 % (3.8-10.2); NEUT % 54.8 % (42.8-82.8); PLATELET COUNT 337 K/MM3 (134-434); RBC 3.91 M/mm3 (3.60-5.2); RDW 15.8 % (11.6-15.6); WHITE BLOOD COUNT 5.2 K/mm3 (4.0-10.0)
[2020-05-23 09:46] LABS: CALCIUM 9.4 mg/dL (8.5-10.1)
[2020-05-23 09:47] LABS: ALBUMIN 3.8 g/dl (3.4-5.0); BLOOD UREA NITROGEN 12.5 mg/dL (7-18)
[2020-05-23 09:50] LABS: CREATININE 0.8 mg/dL (0.55-1.3)
[2020-05-23 09:51] LABS: BILIRUBIN,TOTAL 0.3 mg/dL (0.2-1); TOT PROT 7.3 g/dl (6.4-8.2)
[2020-05-23] MEDS ORDERED: GOSERELIN ACETATE 3.6 MG IMPLANT SYRINGE SQ ONE (10:00)
[2020-05-23] MEDS ORDERED: LIDOCAINE HCL 1%, 10 MG/ML (20ML VIAL) ID ONE (10:00)
[2020-05-23 13:35] VITALS: BP 136/55; PULSE 75; TEMP 98.5
== END 2020-05-23 11:05 | disposition home or self-care (01) ==
LOC: JONCCHEMO 08:12
PROVIDERS: ATTEND Internal Medicine Hematology & Oncology
DX: Z51.11 Encounter for antineoplastic chemotherapy (principal); C50.919 Malignant neoplasm of unspecified site of unspecified female breast
CPT/HCPCS: 36415; 80053; 84703; 85025; 96402; J9202

== ENCOUNTER 2020-06-21 08:16 | Day surgery (SDC) | payer OTHER ==
[2020-06-21] MEDS ORDERED: GOSERELIN ACETATE 3.6 MG IMPLANT SYRINGE SQ ONE (10:00)
[2020-06-21] MEDS ORDERED: PORTA CATH FLUSH 10 ML IVPUSH PRN (11:24)
[2020-06-21 11:32] LABS: BASO % 0.6 % (0-2.0); EOS % 4.6 % (0-4.5); HEMATOCRIT 35.7 % (32.4-45.2); HEMOGLOBIN 12.2 GM/dL (10.7-15.3); LYMPH % 22.2 % (8-40); MCH 30.2 pg (25.7-33.7); MCHC 34.1 g/dl (32.0-36.0); MEAN CELL VOLUME 88.5 fl (80-96); MEAN PLT VOLUME 7.9 fl (7.5-11.1); MONO % 7.7 % (3.8-10.2); NEUT % 64.9 % (42.8-82.8); PLATELET COUNT 360 K/MM3 (134-434); RBC 4.03 M/mm3 (3.60-5.2); RDW 14.8 % (11.6-15.6); WHITE BLOOD COUNT 5.9 K/mm3 (4.0-10.0)
[2020-06-21 11:53] LABS: POTASSIUM 3.9 mmol/L (3.5-5.1)
[2020-06-21 11:55] LABS: CALCIUM 9.3 mg/dL (8.5-10.1)
[2020-06-21 11:56] LABS: ALBUMIN 3.9 g/dl (3.4-5.0); BLOOD UREA NITROGEN 9.6 mg/dL (7-18)
[2020-06-21 12:01] LABS: BILIRUBIN,TOTAL 0.3 mg/dL (0.2-1); TOT PROT 7.6 g/dl (6.4-8.2)
[2020-06-21 17:30] VITALS: BP 124/76; PULSE 83; TEMP 98.9
== END 2020-06-21 11:00 | disposition home or self-care (01) ==
LOC: JONCCHEMO 08:16
PROVIDERS: ATTEND Internal Medicine Hematology & Oncology
DX: Z51.11 Encounter for antineoplastic chemotherapy (principal); C50.912 Malignant neoplasm of unspecified site of left female breast
CPT/HCPCS: 36415; 80053; 82670; 85025; 96402; J9202

== ENCOUNTER 2020-07-26 07:01 | Day surgery (SDC) | payer OTHER ==
[2020-07-26 09:29] LABS: BASO % 0.6 % (0-2.0); HEMATOCRIT 35.1 % (32.4-45.2); HEMOGLOBIN 11.9 GM/dL (10.7-15.3); LYMPH % 20.5 % (8-40); MCH 29.2 pg (25.7-33.7); MCHC 33.8 g/dl (32.0-36.0); MEAN CELL VOLUME 86.2 fl (80-96); MEAN PLT VOLUME 7.2 fl (7.5-11.1); MONO % 6.8 % (3.8-10.2); NEUT % 70.1 % (42.8-82.8); PLATELET COUNT 431 K/MM3 (134-434); RBC 4.06 M/mm3 (3.60-5.2); RDW 14.4 % (11.6-15.6); WHITE BLOOD COUNT 8.3 K/mm3 (4.0-10.0)
[2020-07-26 09:47] LABS: POTASSIUM 3.6 mmol/L (3.5-5.1)
[2020-07-26 09:49] LABS: BLOOD UREA NITROGEN 11.6 mg/dL (7-18); CALCIUM 9.6 mg/dL (8.5-10.1)
[2020-07-26 09:50] LABS: ALBUMIN 3.7 g/dl (3.4-5.0)
[2020-07-26 09:53] LABS: CREATININE 0.9 mg/dL (0.55-1.3)
[2020-07-26 09:54] LABS: BILIRUBIN,TOTAL 0.3 mg/dL (0.2-1); TOT PROT 7.7 g/dl (6.4-8.2)
[2020-07-26] MEDS ORDERED: GOSERELIN ACETATE 3.6 MG IMPLANT SYRINGE SQ ONE (10:00)
[2020-07-26] MEDS ORDERED: LIDOCAINE HCL 1%, 10 MG/ML (20ML VIAL) ID ONE (10:00)
[2020-07-26 15:27] VITALS: BP 130/85; PULSE 95; TEMP 99
== END 2020-07-26 10:20 | disposition home or self-care (01) ==
LOC: JONCCHEMO 07:01
PROVIDERS: ATTEND Internal Medicine Hematology & Oncology
DX: Z51.11 Encounter for antineoplastic chemotherapy (principal); C50.912 Malignant neoplasm of unspecified site of left female breast
CPT/HCPCS: 36415; 80053; 85025; 96402; J9202

== ENCOUNTER 2020-08-23 07:04 | Day surgery (SDC) | payer OTHER ==
[2020-08-23] MEDS ORDERED: LIDOCAINE HCL 1%, 10 MG/ML (20ML VIAL) ID ONE (10:00)
[2020-08-23] MEDS ORDERED: GOSERELIN ACETATE 3.6 MG IMPLANT SYRINGE SQ ONE (10:00)
[2020-08-23 10:48] LABS: EOS % 2.3 % (0-4.5); HEMATOCRIT 36.7 % (32.4-45.2); HEMOGLOBIN 12.2 GM/dL (10.7-15.3); LYMPH % 24.8 % (8-40); MCH 28.4 pg (25.7-33.7); MCHC 33.4 g/dl (32.0-36.0); MEAN PLT VOLUME 7.6 fl (7.5-11.1); MONO % 7.9 % (3.8-10.2); PLATELET COUNT 335 K/MM3 (134-434); RBC 4.32 M/mm3 (3.60-5.2); RDW 14.8 % (11.6-15.6); WHITE BLOOD COUNT 4.8 K/mm3 (4.0-10.0)
[2020-08-23 11:02] LABS: POTASSIUM 3.6 mmol/L (3.5-5.1)
[2020-08-23 11:04] LABS: ALBUMIN 3.9 g/dl (3.4-5.0); BLOOD UREA NITROGEN 7.1 mg/dL (7-18); CALCIUM 9.7 mg/dL (8.5-10.1)
[2020-08-23 11:09] LABS: BILIRUBIN,TOTAL 0.2 mg/dL (0.2-1); TOT PROT 7.8 g/dl (6.4-8.2)
[2020-08-23 15:56] VITALS: BP 131/84; PULSE 79
[2020-08-23 15:59] VITALS: TEMP 98
== END 2020-08-23 11:45 | disposition home or self-care (01) ==
LOC: JONCCHEMO 07:04
PROVIDERS: ATTEND Internal Medicine Hematology & Oncology
DX: Z51.11 Encounter for antineoplastic chemotherapy (principal); C50.912 Malignant neoplasm of unspecified site of left female breast
CPT/HCPCS: 36415; 80053; 82670; 85025; 96402; J9202

== ENCOUNTER 2020-09-20 06:54 | Day surgery (SDC) | payer OTHER ==
[2020-09-20] MEDS ORDERED: GOSERELIN ACETATE 3.6 MG IMPLANT SYRINGE SQ ONE (10:00)
[2020-09-20] MEDS ORDERED: LIDOCAINE HCL 1%, 10 MG/ML (20ML VIAL) ID ONE (10:00)
[2020-09-20 10:44] LABS: BASO % 2.8 % (0-2.0); HEMATOCRIT 36.2 % (32.4-45.2); HEMOGLOBIN 12.2 GM/dL (10.7-15.3); LYMPH % 12.2 % (8-40); MCHC 33.8 g/dl (32.0-36.0); MEAN CELL VOLUME 82.8 fl (80-96); MONO % 10.3 % (3.8-10.2); NEUT % 72.7 % (42.8-82.8); PLATELET COUNT 310 K/MM3 (134-434); RBC 4.37 M/mm3 (3.60-5.2); RDW 15.1 % (11.6-15.6); WHITE BLOOD COUNT 4.5 K/mm3 (4.0-10.0)
[2020-09-20 11:14] LABS: ALBUMIN 3.8 g/dl (3.4-5.0); BLOOD UREA NITROGEN 7.4 mg/dL (7-18); CALCIUM 9.3 mg/dL (8.5-10.1)
[2020-09-20 11:17] LABS: CREATININE 0.9 mg/dL (0.55-1.3)
[2020-09-20 11:19] LABS: BILIRUBIN,TOTAL 0.3 mg/dL (0.2-1); TOT PROT 7.5 g/dl (6.4-8.2)
[2020-09-20 14:16] VITALS: BP 125/80; PULSE 81; TEMP 98.3
== END 2020-09-20 11:20 | disposition home or self-care (01) ==
LOC: JONCCHEMO 06:54
PROVIDERS: ATTEND Internal Medicine Hematology & Oncology
DX: Z51.11 Encounter for antineoplastic chemotherapy (principal); C50.912 Malignant neoplasm of unspecified site of left female breast
CPT/HCPCS: 36415; 80053; 85025; 96402; J9202

== ENCOUNTER 2020-10-18 06:54 | Day surgery (SDC) | payer OTHER ==
[2020-10-18 09:35] LABS: BASO % 0.8 % (0-2.0); EOS % 1.8 % (0-4.5); HEMATOCRIT 35.4 % (32.4-45.2); HEMOGLOBIN 11.9 GM/dL (10.7-15.3); LYMPH % 15.1 % (8-40); MCH 28.4 pg (25.7-33.7); MCHC 33.5 g/dl (32.0-36.0); MEAN CELL VOLUME 84.9 fl (80-96); MEAN PLT VOLUME 6.9 fl (7.5-11.1); MONO % 8.4 % (3.8-10.2); NEUT % 73.9 % (42.8-82.8); PLATELET COUNT 316 K/MM3 (134-434); RBC 4.17 M/mm3 (3.60-5.2); RDW 15.6 % (11.6-15.6); WHITE BLOOD COUNT 4.8 K/mm3 (4.0-10.0)
[2020-10-18 10:00] LABS: ALBUMIN 3.8 g/dl (3.4-5.0); CALCIUM 9.3 mg/dL (8.5-10.1)
[2020-10-18] MEDS ORDERED: LIDOCAINE HCL 1%, 10 MG/ML (20ML VIAL) ID ONE (10:00)
[2020-10-18] MEDS ORDERED: GOSERELIN ACETATE 3.6 MG IMPLANT SYRINGE SQ ONE (10:00)
[2020-10-18 10:01] LABS: BLOOD UREA NITROGEN 7.7 mg/dL (7-18)
[2020-10-18 10:04] LABS: CREATININE 0.9 mg/dL (0.55-1.3)
[2020-10-18 10:05] LABS: BILIRUBIN,TOTAL 0.3 mg/dL (0.2-1); TOT PROT 7.5 g/dl (6.4-8.2)
[2020-10-18 16:52] VITALS: BP 118/50; PULSE 56; TEMP 98
== END 2020-10-18 11:30 | disposition home or self-care (01) ==
LOC: JONCCHEMO 06:54
PROVIDERS: ATTEND Internal Medicine Hematology & Oncology
DX: Z51.11 Encounter for antineoplastic chemotherapy (principal); C50.912 Malignant neoplasm of unspecified site of left female breast
CPT/HCPCS: 36415; 80053; 85025; 96402; J9202

== ENCOUNTER 2020-11-15 07:16 | Day surgery (SDC) | payer OTHER ==
[2020-11-15 09:56] LABS: EOS % 1.8 % (0-4.5); HEMATOCRIT 37.2 % (32.4-45.2); HEMOGLOBIN 12.5 GM/dL (10.7-15.3); LYMPH % 18.2 % (8-40); MCH 28.1 pg (25.7-33.7); MCHC 33.7 g/dl (32.0-36.0); MEAN CELL VOLUME 83.4 fl (80-96); MEAN PLT VOLUME 6.8 fl (7.5-11.1); PLATELET COUNT 334 10^3/uL (134-434); RBC 4.46 M/mm3 (3.60-5.2); RDW 15.6 % (11.6-15.6)
[2020-11-15] MEDS ORDERED: GOSERELIN ACETATE 3.6 MG IMPLANT SYRINGE SQ ONE (10:00)
[2020-11-15] MEDS ORDERED: LIDOCAINE HCL 1%, 10 MG/ML (20ML VIAL) ID ONE (10:00)
[2020-11-15 10:18] LABS: CALCIUM 9.4 mg/dL (8.5-10.1)
[2020-11-15 10:20] LABS: ALBUMIN 3.8 g/dl (3.4-5.0); BLOOD UREA NITROGEN 9.4 mg/dL (7-18)
[2020-11-15 10:23] LABS: BILIRUBIN,TOTAL 0.3 mg/dL (0.2-1); TOT PROT 7.4 g/dl (6.4-8.2)
[2020-11-15 17:33] VITALS: BP 127/77; PULSE 68; TEMP 97.9
== END 2020-11-15 09:50 | disposition home or self-care (01) ==
LOC: JONCCHEMO 07:16
PROVIDERS: ATTEND Internal Medicine Hematology & Oncology
DX: Z51.11 Encounter for antineoplastic chemotherapy (principal); C50.912 Malignant neoplasm of unspecified site of left female breast
CPT/HCPCS: 36415; 80053; 82670; 85025; 96402; J9202

== ENCOUNTER 2020-12-13 07:27 | Day surgery (SDC) | payer OTHER ==
[2020-12-13 09:19] LABS: BASO % 0.9 % (0-2.0); EOS % 1.3 % (0-4.5); HEMATOCRIT 36.8 % (32.4-45.2); HEMOGLOBIN 12.6 GM/dL (10.7-15.3); LYMPH % 18.1 % (8-40); MCH 28.6 pg (25.7-33.7); MCHC 34.3 g/dl (32.0-36.0); MEAN CELL VOLUME 83.3 fl (80-96); MEAN PLT VOLUME 7.2 fl (7.5-11.1); MONO % 5.4 % (3.8-10.2); NEUT % 74.3 % (42.8-82.8); PLATELET COUNT 342 10^3/uL (134-434); RBC 4.41 M/mm3 (3.60-5.2); RDW 15.3 % (11.6-15.6); WHITE BLOOD COUNT 6.1 K/mm3 (4.0-10.0)
[2020-12-13 09:40] LABS: ALBUMIN 3.6 g/dl (3.4-5.0); CALCIUM 9.2 mg/dL (8.5-10.1)
[2020-12-13 09:44] LABS: CREATININE 1.1 mg/dL (0.55-1.3)
[2020-12-13 09:45] LABS: BILIRUBIN,TOTAL 0.4 mg/dL (0.2-1); TOT PROT 7.4 g/dl (6.4-8.2)
[2020-12-13] MEDS ORDERED: LIDOCAINE HCL 1%, 10 MG/ML (20ML VIAL) ID ONE (10:00)
[2020-12-13] MEDS ORDERED: GOSERELIN ACETATE 3.6 MG IMPLANT SYRINGE SQ ONE (10:00)
[2020-12-13 14:29] VITALS: BP 108/65; PULSE 80; TEMP 98.4
== END 2020-12-13 10:00 | disposition home or self-care (01) ==
LOC: JONCCHEMO 07:27
PROVIDERS: ATTEND Internal Medicine Hematology & Oncology
DX: Z51.11 Encounter for antineoplastic chemotherapy (principal); C50.912 Malignant neoplasm of unspecified site of left female breast
CPT/HCPCS: 36415; 80053; 85025; 85651; 86140; 96402; J9202

== ENCOUNTER 2021-01-10 06:43 | Day surgery (SDC) | payer OTHER ==
[2021-01-10] MEDS ORDERED: LIDOCAINE HCL 1%, 10 MG/ML (20ML VIAL) ID ONE (10:00)
[2021-01-10] MEDS ORDERED: GOSERELIN ACETATE 3.6 MG IMPLANT SYRINGE SQ ONE (10:00)
[2021-01-10 10:14] LABS: EOS % 2.3 % (0-4.5); HEMATOCRIT 36.3 % (32.4-45.2); HEMOGLOBIN 12.2 GM/dL (10.7-15.3); LYMPH % 22.6 % (8-40); MCH 28.3 pg (25.7-33.7); MCHC 33.6 g/dl (32.0-36.0); MEAN CELL VOLUME 84.1 fl (80-96); MEAN PLT VOLUME 7.2 fl (7.5-11.1); MONO % 9.6 % (3.8-10.2); NEUT % 64.5 % (42.8-82.8); PLATELET COUNT 298 10^3/uL (134-434); RBC 4.32 M/mm3 (3.60-5.2); RDW 15.3 % (11.6-15.6); WHITE BLOOD COUNT 4.9 K/mm3 (4.0-10.0)
[2021-01-10 10:31] LABS: ALBUMIN 3.8 g/dl (3.4-5.0); CALCIUM 9.2 mg/dL (8.5-10.1)
[2021-01-10 10:36] LABS: BILIRUBIN,TOTAL 0.3 mg/dL (0.2-1)
[2021-01-10 10:39] LABS: TOT PROT 8.1 g/dl (6.4-8.2)
[2021-01-10 15:16] VITALS: BP 111/72; PULSE 74; TEMP 98.9
== END 2021-01-10 10:15 | disposition home or self-care (01) ==
LOC: JONCCHEMO 06:43
PROVIDERS: ATTEND Internal Medicine Hematology & Oncology
DX: Z51.11 Encounter for antineoplastic chemotherapy (principal); C50.912 Malignant neoplasm of unspecified site of left female breast
CPT/HCPCS: 36415; 80053; 85025; 96402; J9202

== ENCOUNTER 2021-02-07 06:51 | Day surgery (SDC) | payer OTHER ==
[2021-02-07] MEDS ORDERED: GOSERELIN ACETATE 3.6 MG IMPLANT SYRINGE SQ ONE (09:00)
[2021-02-07] MEDS ORDERED: LIDOCAINE 1% P/F 10 MG/ML VIAL ID ONE (09:00)
[2021-02-07 10:26] VITALS: BP 118/82; PULSE 70; TEMP 98.4
[2021-02-07 11:32] LABS: BASO % 0.5 % (0-2.0); EOS % 1.2 % (0-4.5); HEMATOCRIT 37.7 % (32.4-45.2); HEMOGLOBIN 12.8 GM/dL (10.7-15.3); LYMPH % 25.8 % (8-40); MCH 28.7 pg (25.7-33.7); MEAN CELL VOLUME 84.3 fl (80-96); MEAN PLT VOLUME 7.3 fl (7.5-11.1); MONO % 8.3 % (3.8-10.2); NEUT % 64.2 % (42.8-82.8); PLATELET COUNT 317 10^3/uL (134-434); RBC 4.47 M/mm3 (3.60-5.2); RDW 14.7 % (11.6-15.6); WHITE BLOOD COUNT 5.4 K/mm3 (4.0-10.0)
[2021-02-07 11:40] LABS: CHLORIDE 104 mmol/L (98-107); SODIUM 139 mmol/L (136-145)
[2021-02-07 12:02] LABS: ALBUMIN 3.9 g/dl (3.4-5.0); BLOOD UREA NITROGEN 11.1 mg/dL (7-18); CALCIUM 9.8 mg/dL (8.5-10.1); CO2 31 mmol/L (21-32); GLUCOSE,RANDOM 76 mg/dL (74-106)
[2021-02-07 12:05] LABS: SGOT/AST 17 U/L (15-37); SGPT/ALT 22 U/L (13-61)
[2021-02-07 12:06] LABS: CREATININE 0.9 mg/dL (0.55-1.3)
[2021-02-07 12:07] LABS: BILIRUBIN,TOTAL 0.4 mg/dL (0.2-1)
[2021-02-07 12:08] LABS: ALK PHOS 121 U/L (45-117)
[2021-02-07 12:09] LABS: ANION GAP 4 MMOL/L (8-16)
[2021-02-07 12:18] LABS: ERYTHROCYTE SEDIMENTATION RATE 23 mm/hr (0-20)
== END 2021-02-07 10:29 | disposition home or self-care (01) ==
LOC: JONCCHEMO 06:51
PROVIDERS: ATTEND Internal Medicine Hematology & Oncology
DX: Z51.11 Encounter for antineoplastic chemotherapy (principal); C50.912 Malignant neoplasm of unspecified site of left female breast
CPT/HCPCS: 36415; 80053; 82306; 82670; 82747; 84703; 85014; 85025; 85651; 86038; 86140; 86431; 96402; J9202

== ENCOUNTER 2021-03-07 07:49 | Day surgery (SDC) | payer OTHER ==
[2021-03-07 09:34] LABS: BASO % 1.3 % (0-2.0); EOS % 0.6 % (0-4.5); HEMATOCRIT 37.3 % (32.4-45.2); HEMOGLOBIN 12.7 GM/dL (10.7-15.3); LYMPH % 19.9 % (8-40); MCHC 34.1 g/dl (32.0-36.0); MEAN CELL VOLUME 85.1 fl (80-96); MEAN PLT VOLUME 6.6 fl (7.5-11.1); NEUT % 71.2 % (42.8-82.8); PLATELET COUNT 369 10^3/uL (134-434); RBC 4.38 M/mm3 (3.60-5.2); RDW 15.7 % (11.6-15.6); WHITE BLOOD COUNT 5.7 K/mm3 (4.0-10.0)
[2021-03-07 09:57] LABS: ALBUMIN 3.8 g/dl (3.4-5.0); BLOOD UREA NITROGEN 9.5 mg/dL (7-18)
[2021-03-07 10:00] LABS: CREATININE 1.1 mg/dL (0.55-1.3)
[2021-03-07] MEDS ORDERED: LIDOCAINE 1% P/F 10 MG/ML VIAL ID ONE (10:00)
[2021-03-07] MEDS ORDERED: GOSERELIN ACETATE 3.6 MG IMPLANT SYRINGE SQ ONE (10:00)
[2021-03-07 10:02] LABS: BILIRUBIN,TOTAL 0.3 mg/dL (0.2-1); TOT PROT 8.1 g/dl (6.4-8.2)
[2021-03-07 17:20] VITALS: BP 124/80; PULSE 80; TEMP 99
== END 2021-03-07 10:30 | disposition home or self-care (01) ==
LOC: JONCCHEMO 07:49
PROVIDERS: ATTEND Internal Medicine Hematology & Oncology
DX: Z51.11 Encounter for antineoplastic chemotherapy (principal); C50.912 Malignant neoplasm of unspecified site of left female breast
CPT/HCPCS: 36415; 80053; 84703; 85025; 96402; J9202

== ENCOUNTER 2021-04-04 07:50 | Day surgery (SDC) | payer OTHER ==
[2021-04-04 10:00] LABS: HEMATOCRIT 37.7 % (32.4-45.2); HEMOGLOBIN 12.8 GM/dL (10.7-15.3); MCH 28.6 pg (25.7-33.7); MEAN CELL VOLUME 84.2 fl (80-96); MEAN PLT VOLUME 6.6 fl (7.5-11.1); PLATELET COUNT 355 10^3/uL (134-434); RBC 4.48 M/mm3 (3.60-5.2); RDW 15.3 % (11.6-15.6); WHITE BLOOD COUNT 5.8 K/mm3 (4.0-10.0)
[2021-04-04] MEDS ORDERED: GOSERELIN ACETATE 3.6 MG IMPLANT SYRINGE SQ ONE (10:00)
[2021-04-04] MEDS ORDERED: LIDOCAINE 1% P/F 10 MG/ML VIAL ID ONE (10:00)
[2021-04-04 10:25] LABS: ALBUMIN 3.9 g/dl (3.4-5.0); BLOOD UREA NITROGEN 12.6 mg/dL (7-18); CALCIUM 9.6 mg/dL (8.5-10.1)
[2021-04-04 10:29] LABS: BILIRUBIN,TOTAL 0.2 mg/dL (0.2-1)
[2021-04-04 10:30] LABS: TOT PROT 7.5 g/dl (6.4-8.2)
[2021-04-04 13:41] VITALS: BP 134/92; PULSE 93; TEMP 98.6
== END 2021-04-04 10:40 | disposition home or self-care (01) ==
LOC: JONCCHEMO 07:50
PROVIDERS: ATTEND Internal Medicine Hematology & Oncology
DX: Z51.11 Encounter for antineoplastic chemotherapy (principal); C50.912 Malignant neoplasm of unspecified site of left female breast
CPT/HCPCS: 36415; 80053; 82977; 85027; 96402; J9202

== ENCOUNTER 2021-05-02 10:18 | Day surgery (SDC) | payer OTHER ==
[2021-05-02 09:54] LABS: EOS % 2.1 % (0-4.5); HEMATOCRIT 37.5 % (32.4-45.2); HEMOGLOBIN 12.6 GM/dL (10.7-15.3); LYMPH % 23.2 % (8-40); MCH 29.3 pg (25.7-33.7); MCHC 33.7 g/dl (32.0-36.0); MEAN PLT VOLUME 6.9 fl (7.5-11.1); MONO % 6.3 % (3.8-10.2); NEUT % 67.4 % (42.8-82.8); PLATELET COUNT 348 10^3/uL (134-434); RBC 4.31 M/mm3 (3.60-5.2); WHITE BLOOD COUNT 6.2 K/mm3 (4.0-10.0)
[2021-05-02 10:12] LABS: ALBUMIN 3.5 g/dl (3.4-5.0); BLOOD UREA NITROGEN 10.8 mg/dL (7-18); CALCIUM 9.5 mg/dL (8.5-10.1)
[2021-05-02 10:14] LABS: CREATININE 1.1 mg/dL (0.55-1.3)
[2021-05-02 10:17] LABS: BILIRUBIN,TOTAL 0.2 mg/dL (0.2-1); TOT PROT 7.5 g/dl (6.4-8.2)
[~2021-05-02 10:18] MED LIST changes: +GOSERELIN ACETATE 3.6 MG IMPLANT SYRINGE SQ ONE; +LIDOCAINE HCL 1%, 10 MG/ML (20ML VIAL) ID ONE; -TBO-FILGRASTIM 480 MCG/0.8 ML DISP.SYRIN SQ ONE
[2021-05-02 15:32] VITALS: BP 121/77; PULSE 84; TEMP 98.5
== END 2021-05-02 11:05 | disposition home or self-care (01) ==
LOC: JONCCHEMO 10:18
PROVIDERS: ATTEND Internal Medicine Hematology & Oncology
DX: Z51.11 Encounter for antineoplastic chemotherapy (principal); C50.912 Malignant neoplasm of unspecified site of left female breast
CPT/HCPCS: 36415; 80053; 84703; 85025; 96401; J9202

== ENCOUNTER 2021-05-30 12:07 | Day surgery (SDC) | payer OTHER ==
[2021-05-30] MEDS ORDERED: LIDOCAINE HCL 1%, 10 MG/ML (20ML VIAL) ID ONE (13:30)
[2021-05-30] MEDS ORDERED: GOSERELIN ACETATE 3.6 MG IMPLANT SYRINGE SQ ONE (13:30)
[2021-05-30 14:35] LABS: BASO % 0.8 % (0-2.0); EOS % 1.1 % (0-4.5); HEMATOCRIT 39.4 % (32.4-45.2); HEMOGLOBIN 13.2 GM/dL (10.7-15.3); LYMPH % 23.6 % (8-40); MCHC 33.5 g/dl (32.0-36.0); MEAN CELL VOLUME 86.5 fl (80-96); MEAN PLT VOLUME 7.3 fl (7.5-11.1); MONO % 7.5 % (3.8-10.2); PLATELET COUNT 370 10^3/uL (134-434); RBC 4.56 M/mm3 (3.60-5.2); WHITE BLOOD COUNT 6.1 K/mm3 (4.0-10.0)
[2021-05-30 14:59] LABS: ALBUMIN 3.9 g/dl (3.4-5.0); BLOOD UREA NITROGEN 16.6 mg/dL (7-18); CALCIUM 9.3 mg/dL (8.5-10.1)
[2021-05-30 15:04] LABS: BILIRUBIN,TOTAL 0.3 mg/dL (0.2-1); TOT PROT 7.5 g/dl (6.4-8.2)
[2021-05-30] MEDS ORDERED: PORTA CATH FLUSH 10 ML IVPUSH ONE (16:33)
[2021-05-30 16:34] VITALS: BP 138/91; PULSE 95; TEMP 98.1
== END 2021-05-30 15:00 | disposition home or self-care (01) ==
LOC: JONCCHEMO 12:07
PROVIDERS: ATTEND Internal Medicine Hematology & Oncology
DX: Z51.11 Encounter for antineoplastic chemotherapy (principal); C50.912 Malignant neoplasm of unspecified site of left female breast
CPT/HCPCS: 36415; 80053; 85025; 96402; J9202

== ENCOUNTER 2021-06-27 06:32 | Day surgery (SDC) | payer OTHER ==
[2021-06-27] MEDS ORDERED: GOSERELIN ACETATE 3.6 MG IMPLANT SYRINGE SQ ONE (11:00)
[2021-06-27] MEDS ORDERED: LIDOCAINE 1% P/F 10 MG/ML VIAL ID ONE (11:00)
[2021-06-27 15:53] VITALS: BP 156/81; PULSE 54; TEMP 98.7
== END 2021-06-27 15:53 | disposition home or self-care (01) ==
LOC: JONCCHEMO 06:32
PROVIDERS: ATTEND Internal Medicine Hematology & Oncology
DX: Z51.11 Encounter for antineoplastic chemotherapy (principal); C50.912 Malignant neoplasm of unspecified site of left female breast
CPT/HCPCS: 96402; J9202

== ENCOUNTER 2021-07-25 06:59 | Day surgery (SDC) | payer OTHER ==
[2021-07-25 09:04] LABS: BASO % 1.1 % (0-2.0); EOS % 1.4 % (0-4.5); HEMATOCRIT 38.2 % (32.4-45.2); HEMOGLOBIN 12.9 GM/dL (10.7-15.3); LYMPH % 23.3 % (8-40); MCH 29.3 pg (25.7-33.7); MCHC 33.8 g/dl (32.0-36.0); MEAN CELL VOLUME 86.7 fl (80-96); MEAN PLT VOLUME 6.9 fl (7.5-11.1); MONO % 7.5 % (3.8-10.2); NEUT % 66.7 % (42.8-82.8); PLATELET COUNT 303 10^3/uL (134-434); RDW 14.6 % (11.6-15.6); WHITE BLOOD COUNT 5.9 K/mm3 (4.0-10.0)
[2021-07-25 09:33] LABS: BLOOD UREA NITROGEN 13.9 mg/dL (7-18); CALCIUM 9.2 mg/dL (8.5-10.1)
[2021-07-25 09:34] LABS: ALBUMIN 3.8 g/dl (3.4-5.0)
[2021-07-25 09:36] LABS: CREATININE 0.9 mg/dL (0.55-1.3)
[2021-07-25 09:38] LABS: BILIRUBIN,TOTAL 0.4 mg/dL (0.2-1); TOT PROT 7.3 g/dl (6.4-8.2)
[2021-07-25] MEDS ORDERED: LIDOCAINE HCL 1%, 10 MG/ML (20ML VIAL) ID ONE (10:00)
[2021-07-25] MEDS ORDERED: GOSERELIN ACETATE 3.6 MG IMPLANT SYRINGE SQ ONE (10:00)
[2021-07-25 13:40] VITALS: BP 113/63; PULSE 73; TEMP 98.1
== END 2021-07-25 11:05 | disposition home or self-care (01) ==
LOC: JONCCHEMO 06:59
PROVIDERS: ATTEND Internal Medicine Hematology & Oncology
DX: Z51.11 Encounter for antineoplastic chemotherapy (principal); C50.912 Malignant neoplasm of unspecified site of left female breast
CPT/HCPCS: 36415; 80053; 82306; 82670; 85025; 96402; J9202

== ENCOUNTER 2021-08-22 07:33 | Day surgery (SDC) | payer OTHER ==
[2021-08-22 09:22] LABS: BASO % 0.8 % (0-2.0); EOS % 1.5 % (0-4.5); HEMATOCRIT 39.1 % (32.4-45.2); HEMOGLOBIN 13.2 GM/dL (10.7-15.3); LYMPH % 23.3 % (8-40); MCH 29.5 pg (25.7-33.7); MCHC 33.7 g/dl (32.0-36.0); MEAN CELL VOLUME 87.6 fl (80-96); MEAN PLT VOLUME 6.9 fl (7.5-11.1); MONO % 7.5 % (3.8-10.2); NEUT % 66.9 % (42.8-82.8); PLATELET COUNT 291 10^3/uL (134-434); RBC 4.46 M/mm3 (3.60-5.2); RDW 15.2 % (11.6-15.6); WHITE BLOOD COUNT 6.5 K/mm3 (4.0-10.0)
[2021-08-22 09:35] LABS: ALBUMIN 3.9 g/dl (3.4-5.0); BLOOD UREA NITROGEN 18.4 mg/dL (7-18); CALCIUM 9.4 mg/dL (8.5-10.1)
[2021-08-22 09:38] LABS: CREATININE 1.3 mg/dL (0.55-1.3)
[2021-08-22 09:40] LABS: BILIRUBIN,TOTAL 0.4 mg/dL (0.2-1); TOT PROT 7.5 g/dl (6.4-8.2)
[2021-08-22] MEDS ORDERED: LIDOCAINE HCL 1%, 10 MG/ML (20ML VIAL) ID ONE (10:00)
[2021-08-22] MEDS ORDERED: GOSERELIN ACETATE 3.6 MG IMPLANT SYRINGE SQ ONE (10:00)
[2021-08-22 14:05] VITALS: BP 128/76; PULSE 85; TEMP 98.2
== END 2021-08-22 10:15 | disposition home or self-care (01) ==
LOC: JONCCHEMO 07:33
PROVIDERS: ATTEND Internal Medicine Hematology & Oncology
DX: Z51.11 Encounter for antineoplastic chemotherapy (principal); C50.912 Malignant neoplasm of unspecified site of left female breast
CPT/HCPCS: 36415; 80053; 85025; 96402; J9202

== ENCOUNTER 2021-09-11 17:57 | Emergency (ER) | payer OTHER ==
[2021-09-11 18:12] VITALS: BP 121/65; PULSE 120; TEMP 100.5; BMI 35.3
[2021-09-11] MEDS ORDERED: ACETAMINOPHEN 500 MG TABLET (FP) ONE (18:36)
[2021-09-11] MEDS ORDERED: ACETAMINOPHEN 500 MG TABLET (FP) PO ONE (18:36)
== END 2021-09-11 20:31 | disposition home or self-care (01) ==
LOC: JER 17:57
DX: R50.9 Fever, unspecified (principal); R05.1 Acute cough
CPT/HCPCS: 71046-TC-FY; 87804; 99284-25; C9803-CS; U0003; U0005

== ENCOUNTER 2021-09-15 11:42 | Emergency (ER) | payer OTHER ==
[2021-09-15 12:18] VITALS: BP 124/76; PULSE 94; TEMP 98.9; BMI 26.0
[2021-09-15] MEDS ORDERED: DEXAMETHASONE SOD PHOSPHATE 10 MG/1 ML VIAL IM ONE (13:02)
[2021-09-15] MEDS ORDERED: DEXAMETHASONE SOD PHOSPHATE 10 MG/1 ML VIAL ONE (13:06)
[2021-09-15] MEDS: ALBUTEROL SO4 2.5/IPRATROPIUM 0.5 INH SOL 3 ML VIAL.NEB. NEB SCH ×2 (13:10→13:52)
[2021-09-15] MEDS ORDERED: ALBUTEROL SO4 0.083% IH SOL 2.5 MG/3 ML VIAL.NEB. NEB ONE ×2 (14:53→14:54)
== END 2021-09-15 15:54 | disposition home or self-care (01) ==
LOC: JERFT 11:42
PROC: 3E0F7GC Introduction of Other Therapeutic Substance into Respiratory Tract, Via Natural or Artificial Opening (ICD-10-PCS; principal; 2021-09-15)
PROC: 3E023GC Introduction of Other Therapeutic Substance into Muscle, Percutaneous Approach (ICD-10-PCS; 2021-09-15)
DX: J20.9 Acute bronchitis, unspecified (principal)
CPT/HCPCS: 71046-TC-FY; 99284-25; J1100

== ENCOUNTER 2021-09-19 07:05 | Day surgery (SDC) | payer OTHER ==
[2021-09-19] MEDS ORDERED: GOSERELIN ACETATE 3.6 MG IMPLANT SYRINGE SQ ONE (10:00)
[2021-09-19] MEDS ORDERED: LIDOCAINE HCL 1%, 10 MG/ML (20ML VIAL) ID ONE (10:00)
[2021-09-19 11:42] LABS: BASO % 0.4 % (0-2.0); EOS % 1.8 % (0-4.5); HEMOGLOBIN 12.6 GM/dL (10.7-15.3); LYMPH % 32.2 % (8-40); MCH 28.8 pg (25.7-33.7); MCHC 33.1 g/dl (32.0-36.0); MEAN CELL VOLUME 86.9 fl (80-96); MEAN PLT VOLUME 6.8 fl (7.5-11.1); MONO % 6.4 % (3.8-10.2); NEUT % 59.2 % (42.8-82.8); PLATELET COUNT 341 10^3/uL (134-434); RBC 4.37 M/mm3 (3.60-5.2); RDW 14.5 % (11.6-15.6); WHITE BLOOD COUNT 5.1 K/mm3 (4.0-10.0)
[2021-09-19 12:05] LABS: ALBUMIN 3.8 g/dl (3.4-5.0); BLOOD UREA NITROGEN 16.7 mg/dL (7-18); CALCIUM 9.4 mg/dL (8.5-10.1)
[2021-09-19 12:08] LABS: CREATININE 0.9 mg/dL (0.55-1.3)
[2021-09-19 12:10] LABS: BILIRUBIN,TOTAL 0.3 mg/dL (0.2-1); TOT PROT 7.2 g/dl (6.4-8.2)
[2021-09-19 17:14] VITALS: BP 118/44; PULSE 76; TEMP 98.5
== END 2021-09-19 11:35 | disposition home or self-care (01) ==
LOC: JONCCHEMO 07:05
PROVIDERS: ATTEND Internal Medicine Hematology & Oncology
DX: Z51.11 Encounter for antineoplastic chemotherapy (principal); C50.912 Malignant neoplasm of unspecified site of left female breast
CPT/HCPCS: 36415; 80053; 85025; 96402; J9202

== ENCOUNTER 2021-10-17 06:55 | Day surgery (SDC) | payer OTHER ==
[2021-10-17 09:56] LABS: EOS % 2.5 % (0-4.5); HEMATOCRIT 38.4 % (32.4-45.2); HEMOGLOBIN 12.9 GM/dL (10.7-15.3); MCH 29.5 pg (25.7-33.7); MCHC 33.6 g/dl (32.0-36.0); MEAN CELL VOLUME 87.8 fl (80-96); MEAN PLT VOLUME 7.2 fl (7.5-11.1); MONO % 5.7 % (3.8-10.2); NEUT % 63.8 % (42.8-82.8); PLATELET COUNT 317 10^3/uL (134-434); RBC 4.38 M/mm3 (3.60-5.2); RDW 14.6 % (11.6-15.6)
[2021-10-17] MEDS ORDERED: GOSERELIN ACETATE 3.6 MG IMPLANT SYRINGE SQ ONE (10:00)
[2021-10-17] MEDS ORDERED: LIDOCAINE HCL 1%, 10 MG/ML (20ML VIAL) ID ONE (10:00)
[2021-10-17 10:16] LABS: BLOOD UREA NITROGEN 14.4 mg/dL (7-18); CALCIUM 9.2 mg/dL (8.5-10.1)
[2021-10-17 10:17] LABS: ALBUMIN 3.7 g/dl (3.4-5.0)
[2021-10-17 10:19] LABS: CREATININE 1.2 mg/dL (0.55-1.3)
[2021-10-17 10:21] LABS: BILIRUBIN,TOTAL 0.6 mg/dL (0.2-1); TOT PROT 7.3 g/dl (6.4-8.2)
[2021-10-17 10:27] VITALS: PULSE 79; TEMP 98.7
[2021-10-17 10:35] VITALS: BP 120/63
== END 2021-10-17 10:20 | disposition home or self-care (01) ==
LOC: JONCCHEMO 06:55
PROVIDERS: ATTEND Internal Medicine Hematology & Oncology
DX: Z51.11 Encounter for antineoplastic chemotherapy (principal); C50.912 Malignant neoplasm of unspecified site of left female breast; I10 Essential (primary) hypertension
CPT/HCPCS: 36415; 80053; 85025; 96402; J9202

== ENCOUNTER 2021-11-14 06:28 | Day surgery (SDC) | payer OTHER ==
[2021-11-14 09:35] LABS: BASO % 0.9 % (0-2.0); EOS % 2.2 % (0-4.5); HEMATOCRIT 38.7 % (32.4-45.2); HEMOGLOBIN 13.5 GM/dL (10.7-15.3); LYMPH % 27.9 % (8-40); MCH 30.3 pg (25.7-33.7); MCHC 34.7 g/dl (32.0-36.0); MEAN CELL VOLUME 87.2 fl (80-96); MEAN PLT VOLUME 7.1 fl (7.5-11.1); MONO % 5.9 % (3.8-10.2); NEUT % 63.1 % (42.8-82.8); PLATELET COUNT 311 10^3/uL (134-434); RBC 4.44 M/mm3 (3.60-5.2); RDW 14.1 % (11.6-15.6); WHITE BLOOD COUNT 5.9 K/mm3 (4.0-10.0)
[2021-11-14 09:57] LABS: ALBUMIN 3.7 g/dl (3.4-5.0); BLOOD UREA NITROGEN 11.3 mg/dL (7-18)
[2021-11-14] MEDS ORDERED: LIDOCAINE HCL 1%, 10 MG/ML (20ML VIAL) ID ONE (10:00)
[2021-11-14] MEDS ORDERED: GOSERELIN ACETATE 3.6 MG IMPLANT SYRINGE SQ ONE (10:00)
[2021-11-14 10:02] LABS: BILIRUBIN,TOTAL 0.3 mg/dL (0.2-1); TOT PROT 7.4 g/dl (6.4-8.2)
[2021-11-14 14:22] VITALS: BP 116/72; PULSE 78; TEMP 98.5
== END 2021-11-14 09:20 | disposition home or self-care (01) ==
LOC: JONCCHEMO 06:28
PROVIDERS: ATTEND Internal Medicine Hematology & Oncology
DX: Z51.11 Encounter for antineoplastic chemotherapy (principal); C50.912 Malignant neoplasm of unspecified site of left female breast
CPT/HCPCS: 36415; 80053; 85025; 96402; J9202

== ENCOUNTER 2021-12-12 07:17 | Day surgery (SDC) | payer OTHER ==
[2021-12-12 09:51] LABS: BASO % 0.9 % (0-2.0); EOS % 2.3 % (0-4.5); HEMATOCRIT 40.5 % (32.4-45.2); HEMOGLOBIN 13.5 GM/dL (10.7-15.3); LYMPH % 28.5 % (8-40); MCH 29.5 pg (25.7-33.7); MCHC 33.4 g/dl (32.0-36.0); MEAN CELL VOLUME 88.2 fl (80-96); MEAN PLT VOLUME 7.1 fl (7.5-11.1); MONO % 7.6 % (3.8-10.2); NEUT % 60.7 % (42.8-82.8); PLATELET COUNT 345 10^3/uL (134-434); RBC 4.59 M/mm3 (3.60-5.2); RDW 13.9 % (11.6-15.6); WHITE BLOOD COUNT 5.2 K/mm3 (4.0-10.0)
[2021-12-12 09:53] LABS: CALCIUM 9.8 mg/dL (8.5-10.1)
[2021-12-12 09:54] LABS: ALBUMIN 3.8 g/dl (3.4-5.0); BLOOD UREA NITROGEN 12.1 mg/dL (7-18)
[2021-12-12 09:58] LABS: TOT PROT 7.7 g/dl (6.4-8.2)
[2021-12-12 09:59] LABS: BILIRUBIN,TOTAL 0.4 mg/dL (0.2-1)
[2021-12-12] MEDS ORDERED: GOSERELIN ACETATE 3.6 MG IMPLANT SYRINGE SQ ONE (10:00)
[2021-12-12] MEDS ORDERED: LIDOCAINE 1% P/F 10 MG/ML VIAL ID ONE (10:00)
[2021-12-12 16:03] VITALS: BP 122/89; PULSE 73; RESP 18; TEMP 98.8
== END 2021-12-12 10:20 | disposition home or self-care (01) ==
LOC: JONCCHEMO 07:17
PROVIDERS: ATTEND Internal Medicine Hematology & Oncology
DX: Z51.11 Encounter for antineoplastic chemotherapy (principal); C50.912 Malignant neoplasm of unspecified site of left female breast
CPT/HCPCS: 36415; 80053; 85025; 96402; J9202

== ENCOUNTER 2022-01-09 07:20 | Day surgery (SDC) | payer OTHER ==
[2022-01-09 09:59] VITALS: BP 136/84; PULSE 68; RESP 16; TEMP 98.6
[2022-01-09] MEDS ORDERED: GOSERELIN ACETATE 3.6 MG IMPLANT SYRINGE SQ ONE (10:00)
[2022-01-09] MEDS ORDERED: LIDOCAINE HCL 1%, 10 MG/ML (20ML VIAL) ID ONE (10:00)
[2022-01-09 10:13] LABS: BASO % 0.4 % (0-2.0); HEMATOCRIT 40.2 % (32.4-45.2); HEMOGLOBIN 13.6 GM/dL (10.7-15.3); LYMPH % 27.5 % (8-40); MCH 29.5 pg (25.7-33.7); MCHC 33.7 g/dl (32.0-36.0); MEAN CELL VOLUME 87.5 fl (80-96); MEAN PLT VOLUME 7.4 fl (7.5-11.1); MONO % 6.4 % (3.8-10.2); NEUT % 64.7 % (42.8-82.8); PLATELET COUNT 372 10^3/uL (134-434); RDW 13.8 % (11.6-15.6); WHITE BLOOD COUNT 7.4 K/mm3 (4.0-10.0)
[2022-01-09 10:38] LABS: CALCIUM 9.4 mg/dL (8.5-10.1)
[2022-01-09 10:39] LABS: ALBUMIN 4.1 g/dl (3.4-5.0); BLOOD UREA NITROGEN 13.9 mg/dL (7-18)
[2022-01-09 10:42] LABS: CREATININE 0.9 mg/dL (0.55-1.3)
[2022-01-09 10:46] LABS: BILIRUBIN,TOTAL 0.3 mg/dL (0.2-1)
== END 2022-01-09 09:59 | disposition home or self-care (01) ==
LOC: JONCCHEMO 07:20
PROVIDERS: ATTEND Internal Medicine Hematology & Oncology
DX: Z51.11 Encounter for antineoplastic chemotherapy (principal); C50.912 Malignant neoplasm of unspecified site of left female breast
CPT/HCPCS: 36415; 80053; 85025; 96402; J9202

== ENCOUNTER 2022-02-05 08:40 | Day surgery (SDC) | payer OTHER ==
[2022-02-05 09:42] LABS: EOS % 1.7 % (0-4.5); HEMATOCRIT 38.7 % (32.4-45.2); HEMOGLOBIN 13.3 GM/dL (10.7-15.3); LYMPH % 28.8 % (8-40); MCH 30.3 pg (25.7-33.7); MCHC 34.5 g/dl (32.0-36.0); MEAN CELL VOLUME 87.8 fl (80-96); MEAN PLT VOLUME 6.9 fl (7.5-11.1); MONO % 6.4 % (3.8-10.2); NEUT % 62.1 % (42.8-82.8); PLATELET COUNT 340 10^3/uL (134-434); RBC 4.41 M/mm3 (3.60-5.2); RDW 14.1 % (11.6-15.6); WHITE BLOOD COUNT 7.1 K/mm3 (4.0-10.0)
[2022-02-05] MEDS ORDERED: GOSERELIN ACETATE 3.6 MG IMPLANT SYRINGE SQ ONE (10:00)
[2022-02-05] MEDS ORDERED: LIDOCAINE HCL 1%, 10 MG/ML (20ML VIAL) ID ONE (10:00)
[2022-02-05 11:00] LABS: CALCIUM 9.1 mg/dL (8.5-10.1)
[2022-02-05 11:01] LABS: ALBUMIN 3.9 g/dl (3.4-5.0); BLOOD UREA NITROGEN 8.5 mg/dL (7-18); MAGNESIUM 2.2 mg/dL (1.8-2.4)
[2022-02-05 11:03] LABS: BILIRUBIN,DIRECT 0.1 mg/dL (0.0-0.2)
[2022-02-05 11:05] LABS: BILIRUBIN,TOTAL 0.3 mg/dL (0.2-1)
[2022-02-05 11:06] LABS: TOT PROT 7.8 g/dl (6.4-8.2)
[2022-02-05 12:38] VITALS: BP 141/89; PULSE 74; RESP 18; TEMP 98.4
[2022-02-06 08:07] LABS: CARCINOEMBRYONIC ANTIGEN 1.8 ng/mL (0.0-4.7); FOLLICLE STIMULATING HORMONE 9.6 mIU/mL (.); LUTEINIZING HORMONE < 0.3 mIU/mL (.)
== END 2022-02-05 10:40 | disposition home or self-care (01) ==
LOC: JONCCHEMO 08:40
PROVIDERS: ATTEND Internal Medicine Hematology & Oncology
DX: Z51.11 Encounter for antineoplastic chemotherapy (principal); C50.912 Malignant neoplasm of unspecified site of left female breast
CPT/HCPCS: 36415; 80048; 80076; 82378; 82670; 83001; 83002; 83735; 84703; 85025; 86300; 96402; J9202

== ENCOUNTER 2022-03-12 09:19 | Day surgery (SDC) | payer OTHER ==
[2022-03-12 09:55] LABS: BASO % 0.9 % (0-2.0); EOS % 2.1 % (0-4.5); HEMATOCRIT 39.1 % (32.4-45.2); HEMOGLOBIN 13.3 GM/dL (10.7-15.3); LYMPH % 29.6 % (8-40); MCH 29.9 pg (25.7-33.7); MCHC 34.2 g/dl (32.0-36.0); MEAN CELL VOLUME 87.6 fl (80-96); MONO % 6.1 % (3.8-10.2); NEUT % 61.3 % (42.8-82.8); PLATELET COUNT 335 10^3/uL (134-434); RBC 4.46 M/mm3 (3.60-5.2); RDW 14.1 % (11.6-15.6); WHITE BLOOD COUNT 6.1 K/mm3 (4.0-10.0)
[2022-03-12] MEDS ORDERED: LIDOCAINE HCL 1%, 10 MG/ML (20ML VIAL) ID ONE (10:00)
[2022-03-12] MEDS ORDERED: GOSERELIN ACETATE 3.6 MG IMPLANT SYRINGE SQ ONE (10:00)
[2022-03-12 10:43] LABS: BLOOD UREA NITROGEN 12.9 mg/dL (7-18); CALCIUM 9.4 mg/dL (8.5-10.1)
[2022-03-12 11:38] LABS: CREATININE 1.1 mg/dL (0.55-1.3)
[2022-03-12 11:39] LABS: BILIRUBIN,TOTAL 0.3 mg/dL (0.2-1); TOT PROT 7.2 g/dl (6.4-8.2)
[2022-03-12 11:43] LABS: BILIRUBIN,DIRECT 0.1 mg/dL (0.0-0.2)
[2022-03-12 12:14] LABS: ALBUMIN 3.7 g/dl (3.4-5.0)
[2022-03-12 17:57] VITALS: BP 126/71; PULSE 80; RESP 18; TEMP 98.2
[2022-03-14 08:12] LABS: FOLLICLE STIMULATING HORMONE 8.8 mIU/mL (.); LUTEINIZING HORMONE < 0.3 mIU/mL (.)
== END 2022-03-12 11:50 | disposition home or self-care (01) ==
LOC: JONCCHEMO 09:19
PROVIDERS: ATTEND Internal Medicine Hematology & Oncology
DX: Z51.11 Encounter for antineoplastic chemotherapy (principal); C50.912 Malignant neoplasm of unspecified site of left female breast
CPT/HCPCS: 36415; 80048; 80076; 82378; 82670; 83001; 83002; 83735; 84703; 85025; 86300; 96402; J9202

== ENCOUNTER 2022-04-09 09:22 | Day surgery (SDC) | payer OTHER ==
[2022-04-09] MEDS ORDERED: GOSERELIN ACETATE 3.6 MG IMPLANT SYRINGE SQ ONE (10:00)
[2022-04-09] MEDS ORDERED: LIDOCAINE HCL 1%, 10 MG/ML (20ML VIAL) ID ONE (10:00)
[2022-04-09 10:24] LABS: BASO % 0.9 % (0-2.0); EOS % 2.1 % (0-4.5); HEMATOCRIT 39.9 % (32.4-45.2); HEMOGLOBIN 13.3 GM/dL (10.7-15.3); LYMPH % 26.3 % (8-40); MCH 29.7 pg (25.7-33.7); MCHC 33.3 g/dl (32.0-36.0); MEAN PLT VOLUME 7.3 fl (7.5-11.1); MONO % 5.7 % (3.8-10.2); PLATELET COUNT 320 10^3/uL (134-434); RBC 4.48 M/mm3 (3.60-5.2); RDW 14.3 % (11.6-15.6); WHITE BLOOD COUNT 8.1 K/mm3 (4.0-10.0)
[2022-04-09 10:49] LABS: ALBUMIN 3.7 g/dl (3.4-5.0); BLOOD UREA NITROGEN 11.9 mg/dL (7-18); CALCIUM 9.4 mg/dL (8.5-10.1); CREATININE 0.9 mg/dL (0.55-1.3); MAGNESIUM 2.3 mg/dL (1.8-2.4)
[2022-04-09 10:51] LABS: BILIRUBIN,TOTAL 0.3 mg/dL (0.2-1); TOT PROT 7.5 g/dl (6.4-8.2)
[2022-04-09 10:52] LABS: BILIRUBIN,DIRECT 0.1 mg/dL (0.0-0.2)
[2022-04-09 17:12] VITALS: BP 122/78; PULSE 85; RESP 16; TEMP 98.1
[2022-04-10 08:06] LABS: CARCINOEMBRYONIC ANTIGEN 1.8 ng/mL (0.0-4.7); FOLLICLE STIMULATING HORMONE 7.6 mIU/mL (.); LUTEINIZING HORMONE < 0.3 mIU/mL (.)
== END 2022-04-09 11:30 | disposition home or self-care (01) ==
LOC: JONCCHEMO 09:22
PROVIDERS: ATTEND Internal Medicine Hematology & Oncology
DX: Z51.11 Encounter for antineoplastic chemotherapy (principal); C50.912 Malignant neoplasm of unspecified site of left female breast
CPT/HCPCS: 36415; 80048; 80076; 82378; 82670; 83001; 83002; 83735; 85025; 86300; 96402; J9202

== ENCOUNTER 2022-05-07 07:17 | Day surgery (SDC) | payer OTHER ==
[2022-05-07 09:55] LABS: BASO % 0.6 % (0-2.0); EOS % 1.4 % (0-4.5); HEMATOCRIT 43.1 % (32.4-45.2); HEMOGLOBIN 14.3 GM/dL (10.7-15.3); MCH 29.3 pg (25.7-33.7); MCHC 33.2 g/dl (32.0-36.0); MEAN CELL VOLUME 88.2 fl (80-96); MEAN PLT VOLUME 7.2 fl (7.5-11.1); PLATELET COUNT 389 10^3/uL (134-434); RBC 4.89 M/mm3 (3.60-5.2); WHITE BLOOD COUNT 7.4 K/mm3 (4.0-10.0)
[2022-05-07] MEDS ORDERED: LIDOCAINE HCL 1%, 10 MG/ML (20ML VIAL) ID ONE (10:00)
[2022-05-07] MEDS ORDERED: GOSERELIN ACETATE 3.6 MG IMPLANT SYRINGE SQ ONE (10:00)
[2022-05-07 10:17] LABS: ALBUMIN 4.1 g/dl (3.4-5.0); CALCIUM 9.9 mg/dL (8.5-10.1)
[2022-05-07 10:18] LABS: BLOOD UREA NITROGEN 9.1 mg/dL (7-18); MAGNESIUM 2.3 mg/dL (1.8-2.4)
[2022-05-07 10:21] LABS: CREATININE 1.1 mg/dL (0.55-1.3)
[2022-05-07 10:22] LABS: BILIRUBIN,TOTAL 0.4 mg/dL (0.2-1)
[2022-05-07 10:23] LABS: TOT PROT 8.2 g/dl (6.4-8.2)
[2022-05-07 10:33] LABS: BILIRUBIN,DIRECT 0.1 mg/dL (0.0-0.2)
[2022-05-07 14:59] VITALS: BP 142/94; PULSE 78; RESP 18; TEMP 98.7
[2022-05-09 08:07] LABS: CARCINOEMBRYONIC ANTIGEN 2.2 ng/mL (0.0-4.7)
== END 2022-05-07 11:45 | disposition home or self-care (01) ==
LOC: JONCCHEMO 07:17
PROVIDERS: ATTEND Internal Medicine Hematology & Oncology
DX: Z51.11 Encounter for antineoplastic chemotherapy (principal); C50.912 Malignant neoplasm of unspecified site of left female breast
CPT/HCPCS: 36415; 80048; 80076; 82378; 82670; 83735; 84703; 85025; 86300; 96402; J9202

== ENCOUNTER 2022-06-04 09:03 | Day surgery (SDC) | payer OTHER ==
[2022-06-04 09:52] LABS: EOS % 2.4 % (0-4.5); HEMATOCRIT 39.6 % (32.4-45.2); HEMOGLOBIN 13.4 GM/dL (10.7-15.3); LYMPH % 29.3 % (8-40); MCH 29.9 pg (25.7-33.7); MCHC 33.9 g/dl (32.0-36.0); MEAN CELL VOLUME 88.1 fl (80-96); MEAN PLT VOLUME 7.4 fl (7.5-11.1); MONO % 7.8 % (3.8-10.2); NEUT % 59.5 % (42.8-82.8); PLATELET COUNT 347 10^3/uL (134-434); RBC 4.49 M/mm3 (3.60-5.2); RDW 14.5 % (11.6-15.6); WHITE BLOOD COUNT 7.2 K/mm3 (4.0-10.0)
[2022-06-04] MEDS ORDERED: GOSERELIN ACETATE 3.6 MG IMPLANT SYRINGE SQ ONE (10:00)
[2022-06-04] MEDS ORDERED: LIDOCAINE HCL 1%, 10 MG/ML (20ML VIAL) ID ONE (10:00)
[2022-06-04 10:10] LABS: CALCIUM 9.4 mg/dL (8.5-10.1)
[2022-06-04 10:13] LABS: BILIRUBIN,DIRECT 0.1 mg/dL (0.0-0.2)
[2022-06-04 10:15] LABS: BILIRUBIN,TOTAL 0.5 mg/dL (0.2-1); TOT PROT 7.6 g/dl (6.4-8.2)
[2022-06-04 11:36] LABS: PH,URINE 5.5 (5.0-8.0); URINE APPEARANCE CLEAR; URINE BILIRUBIN NEGATIVE (NEGATIVE); URINE COLOR YELLOW; URINE GLUCOSE (UA) NEGATIVE (NEGATIVE); URINE KETONE NEGATIVE (NEGATIVE); URINE LEUK ESTERASE NEGATIVE (NEGATIVE); URINE NITRITE NEGATIVE (NEGATIVE); URINE PROTEIN NEGATIVE (NEGATIVE); URINE UROBILINOGEN 0.2 mg/dL (0.2-1.0)
[2022-06-04 16:15] VITALS: BP 120/6; PULSE 90; RESP 18; TEMP 98.5
[2022-06-05 08:06] LABS: CARCINOEMBRYONIC ANTIGEN 2.2 ng/mL (0.0-4.7)
== END 2022-06-04 11:05 | disposition home or self-care (01) ==
LOC: JONCCHEMO 09:03
PROVIDERS: ATTEND Internal Medicine Hematology & Oncology
DX: Z51.11 Encounter for antineoplastic chemotherapy (principal); C50.912 Malignant neoplasm of unspecified site of left female breast
CPT/HCPCS: 36415; 80048; 80076; 81003; 82085; 82378; 82550; 82553; 82670; 84703; 85025; 86300; 87086; 93970-TC; 96402; J9202

== ENCOUNTER 2022-07-02 09:18 | Day surgery (SDC) | payer OTHER ==
[2022-07-02] MEDS ORDERED: GOSERELIN ACETATE 3.6 MG IMPLANT SYRINGE SQ ONE (10:00)
[2022-07-02] MEDS ORDERED: LIDOCAINE HCL 1%, 10 MG/ML (20ML VIAL) ID ONE (10:00)
[2022-07-02 10:19] LABS: BASO % 0.8 % (0-2.0); EOS % 1.6 % (0-4.5); HEMOGLOBIN 13.9 GM/dL (10.7-15.3); LYMPH % 28.4 % (8-40); MCH 30.2 pg (25.7-33.7); MCHC 33.9 g/dl (32.0-36.0); MEAN PLT VOLUME 7.2 fl (7.5-11.1); MONO % 5.5 % (3.8-10.2); NEUT % 63.7 % (42.8-82.8); PLATELET COUNT 343 10^3/uL (134-434); RDW 14.5 % (11.6-15.6); WHITE BLOOD COUNT 7.1 K/mm3 (4.0-10.0)
[2022-07-02 10:39] LABS: CALCIUM 9.4 mg/dL (8.5-10.1)
[2022-07-02 10:40] LABS: MAGNESIUM 2.2 mg/dL (1.8-2.4)
[2022-07-02 10:42] LABS: BILIRUBIN,DIRECT 0.1 mg/dL (0.0-0.2)
[2022-07-02 10:44] LABS: BILIRUBIN,TOTAL 0.4 mg/dL (0.2-1); TOT PROT 7.7 g/dl (6.4-8.2)
[2022-07-02 18:07] VITALS: BP 121/79; PULSE 78; RESP 18; TEMP 98.1
[2022-07-03 08:08] LABS: CARCINOEMBRYONIC ANTIGEN 2.1 ng/mL (0.0-4.7)
== END 2022-07-02 12:00 | disposition home or self-care (01) ==
LOC: JONCCHEMO 09:18
PROVIDERS: ATTEND Internal Medicine Hematology & Oncology
DX: Z51.11 Encounter for antineoplastic chemotherapy (principal); C50.912 Malignant neoplasm of unspecified site of left female breast
CPT/HCPCS: 36415; 71046-TC-FY; 80048; 80076; 82378; 82550; 82670; 83735; 84703; 85025; 86300; 93306-TC; 96402; J9202

== ENCOUNTER 2022-07-30 08:24 | Day surgery (SDC) | payer OTHER ==
[2022-07-30 09:37] LABS: BASO % 0.6 % (0-2.0); HEMOGLOBIN 13.3 GM/dL (10.7-15.3); LYMPH % 27.9 % (8-40); MCH 28.8 pg (25.7-33.7); MCHC 33.2 g/dl (32.0-36.0); MEAN CELL VOLUME 86.7 fl (80-96); MONO % 6.6 % (3.8-10.2); NEUT % 62.9 % (42.8-82.8); PLATELET COUNT 356 10^3/uL (134-434); RBC 4.62 M/mm3 (3.60-5.2); RDW 14.2 % (11.6-15.6); WHITE BLOOD COUNT 7.5 K/mm3 (4.0-10.0)
[2022-07-30 09:55] LABS: ALBUMIN 3.9 g/dl (3.4-5.0); CALCIUM 9.5 mg/dL (8.5-10.1)
[2022-07-30 09:56] LABS: BLOOD UREA NITROGEN 12.3 mg/dL (7-18); MAGNESIUM 2.3 mg/dL (1.8-2.4)
[2022-07-30 09:58] LABS: BILIRUBIN,DIRECT 0.1 mg/dL (0.0-0.2); BILIRUBIN,TOTAL 0.3 mg/dL (0.2-1); TOT PROT 7.8 g/dl (6.4-8.2)
[2022-07-30] MEDS ORDERED: LIDOCAINE HCL 1%, 10 MG/ML (20ML VIAL) ID ONE (10:00)
[2022-07-30] MEDS ORDERED: GOSERELIN ACETATE 3.6 MG IMPLANT SYRINGE SQ ONE (10:00)
[2022-07-30 10:51] VITALS: BP 120/49; PULSE 83; RESP 18; TEMP 98
[2022-07-31 08:07] LABS: FOLLICLE STIMULATING HORMONE 6.8 mIU/mL (.); LUTEINIZING HORMONE < 0.3 mIU/mL (.)
[2022-07-31 23:06] LABS: CARCINOEMBRYONIC ANTIGEN 1.7 ng/mL (0.0-4.7)
== END 2022-07-30 10:00 | disposition home or self-care (01) ==
LOC: JONCCHEMO 08:24
PROVIDERS: ATTEND Internal Medicine Hematology & Oncology
DX: Z51.11 Encounter for antineoplastic chemotherapy (principal); C50.912 Malignant neoplasm of unspecified site of left female breast
CPT/HCPCS: 36415; 80048; 80076; 82378; 82670; 83001; 83002; 83735; 84703; 85025; 86300; 96402; J9202

== ENCOUNTER 2022-08-27 08:30 | Day surgery (SDC) | payer OTHER ==
[2022-08-27 08:52] LABS: EOS % 1.9 % (0-4.5); HEMATOCRIT 38.5 % (32.4-45.2); HEMOGLOBIN 13.6 GM/dL (10.7-15.3); LYMPH % 30.7 % (8-40); MCH 30.5 pg (25.7-33.7); MCHC 35.3 g/dl (32.0-36.0); MEAN CELL VOLUME 86.6 fl (80-96); MEAN PLT VOLUME 7.5 fl (7.5-11.1); MONO % 6.7 % (3.8-10.2); NEUT % 59.7 % (42.8-82.8); PLATELET COUNT 348 10^3/uL (134-434); RBC 4.44 M/mm3 (3.60-5.2); RDW 13.8 % (11.6-15.6); WHITE BLOOD COUNT 6.8 K/mm3 (4.0-10.0)
[2022-08-27] MEDS ORDERED: GOSERELIN ACETATE 3.6 MG IMPLANT SYRINGE SQ ONE (10:00)
[2022-08-27] MEDS ORDERED: LIDOCAINE HCL 1%, 10 MG/ML (20ML VIAL) ID ONE (10:00)
[2022-08-27 10:03] LABS: ALBUMIN 3.8 g/dl (3.4-5.0); BLOOD UREA NITROGEN 11.9 mg/dL (7-18); CALCIUM 9.5 mg/dL (8.5-10.1); MAGNESIUM 2.1 mg/dL (1.8-2.4)
[2022-08-27 10:06] LABS: BILIRUBIN,DIRECT 0.1 mg/dL (0.0-0.2); CREATININE 0.9 mg/dL (0.55-1.3)
[2022-08-27 10:08] LABS: BILIRUBIN,TOTAL 0.3 mg/dL (0.2-1); TOT PROT 7.6 g/dl (6.4-8.2)
[2022-08-27 16:52] VITALS: BP 132/89; PULSE 76; RESP 20; TEMP 98
[2022-08-28 08:10] LABS: CARCINOEMBRYONIC ANTIGEN 2.1 ng/mL (0.0-4.7); FOLLICLE STIMULATING HORMONE 7.2 mIU/mL (.); LUTEINIZING HORMONE < 0.3 mIU/mL (.)
== END 2022-08-27 10:55 | disposition home or self-care (01) ==
LOC: JONCCHEMO 08:30
PROVIDERS: ATTEND Internal Medicine Hematology & Oncology
DX: Z51.11 Encounter for antineoplastic chemotherapy (principal); C50.912 Malignant neoplasm of unspecified site of left female breast
CPT/HCPCS: 36415; 80048; 80076; 82378; 82550; 82670; 83001; 83002; 83735; 84703; 85025; 86300; 96402; J9202

== ENCOUNTER 2022-09-24 08:38 | Day surgery (SDC) | payer OTHER ==
[2022-09-24 09:13] LABS: POTASSIUM 3.7 mmol/L (3.5-5.1)
[2022-09-24 09:16] LABS: CALCIUM 9.5 mg/dL (8.5-10.1)
[2022-09-24 09:18] LABS: BLOOD UREA NITROGEN 10.6 mg/dL (7-18); MAGNESIUM 2.2 mg/dL (1.8-2.4)
[2022-09-24 09:19] LABS: BILIRUBIN,DIRECT 0.1 mg/dL (0.0-0.2)
[2022-09-24 09:21] LABS: BILIRUBIN,TOTAL 0.3 mg/dL (0.2-1); TOT PROT 8.1 g/dl (6.4-8.2)
[2022-09-24 09:23] LABS: EOS % 2.2 % (0-4.5); HEMATOCRIT 40.3 % (32.4-45.2); HEMOGLOBIN 13.8 GM/dL (10.7-15.3); LYMPH % 31.9 % (8-40); MCHC 34.4 g/dl (32.0-36.0); MEAN CELL VOLUME 87.4 fl (80-96); MEAN PLT VOLUME 7.5 fl (7.5-11.1); MONO % 7.9 % (3.8-10.2); PLATELET COUNT 330 10^3/uL (134-434); RBC 4.61 M/mm3 (3.60-5.2); WHITE BLOOD COUNT 7.3 K/mm3 (4.0-10.0)
[2022-09-24] MEDS ORDERED: GOSERELIN ACETATE 3.6 MG IMPLANT SYRINGE SQ ONE (10:00)
[2022-09-24] MEDS ORDERED: LIDOCAINE HCL 1%, 10 MG/ML (20ML VIAL) ID ONE (10:00)
[2022-09-24 16:44] VITALS: BP 127/84; PULSE 82; RESP 20; TEMP 98.7
[2022-09-25 08:08] LABS: FOLLICLE STIMULATING HORMONE 7.9 mIU/mL (.); LUTEINIZING HORMONE 0.5 mIU/mL (.)
== END 2022-09-24 10:30 | disposition home or self-care (01) ==
LOC: J7W 08:38 → JONCCHEMO 08:38
PROVIDERS: ATTEND Internal Medicine Hematology & Oncology
DX: Z51.11 Encounter for antineoplastic chemotherapy (principal); C50.912 Malignant neoplasm of unspecified site of left female breast
CPT/HCPCS: 36415; 80048; 80076; 82378; 82550; 82670; 83001; 83002; 83735; 84703; 85025; 86300; 96402; J9202

== ENCOUNTER 2022-10-22 08:50 | Day surgery (SDC) | payer OTHER ==
[2022-10-22 09:32] LABS: BASO % 0.3 % (0-2.0); EOS % 2.1 % (0-4.5); HEMATOCRIT 39.4 % (32.4-45.2); HEMOGLOBIN 13.3 GM/dL (10.7-15.3); LYMPH % 19.3 % (8-40); MCH 29.7 pg (25.7-33.7); MCHC 33.9 g/dl (32.0-36.0); MEAN CELL VOLUME 87.6 fl (80-96); MEAN PLT VOLUME 6.9 fl (7.5-11.1); MONO % 5.7 % (3.8-10.2); NEUT % 72.6 % (42.8-82.8); PLATELET COUNT 328 10^3/uL (134-434); RDW 14.3 % (11.6-15.6)
[2022-10-22 09:49] LABS: POTASSIUM 3.9 mmol/L (3.5-5.1)
[2022-10-22] MEDS ORDERED: LIDOCAINE HCL 1%, 10 MG/ML (20ML VIAL) ID ONE (10:00)
[2022-10-22] MEDS ORDERED: GOSERELIN ACETATE 3.6 MG IMPLANT SYRINGE SQ ONE (10:00)
[2022-10-22 10:47] LABS: ALBUMIN 3.9 g/dl (3.4-5.0); BILIRUBIN,DIRECT 0.1 mg/dL (0.0-0.2); BILIRUBIN,TOTAL 0.6 mg/dL (0.2-1); BLOOD UREA NITROGEN 9.4 mg/dL (7-18); CALCIUM 9.5 mg/dL (8.5-10.1); CREATININE 1.1 mg/dL (0.55-1.3); MAGNESIUM 2.2 mg/dL (1.8-2.4); TOT PROT 7.6 g/dl (6.4-8.2)
[2022-10-22 17:42] VITALS: BP 111/79; PULSE 79; RESP 18; TEMP 98
[2022-10-26 17:07] LABS: FOLLICLE STIMULATING HORMONE 6.9 mIU/mL (.); LUTEINIZING HORMONE < 0.3 mIU/mL (.)
== END 2022-10-22 10:30 | disposition home or self-care (01) ==
LOC: JONCCHEMO 08:50 → J7W 08:52 → JONCCHEMO 10:30
PROVIDERS: ATTEND Internal Medicine Hematology & Oncology
DX: Z51.11 Encounter for antineoplastic chemotherapy (principal); C50.919 Malignant neoplasm of unspecified site of unspecified female breast
CPT/HCPCS: 36415; 80048; 80076; 82378; 82550; 82670; 83001; 83002; 83735; 84703; 85025; 86300; 96372; J9202

== ENCOUNTER 2022-11-19 08:55 | Day surgery (SDC) | payer OTHER ==
[2022-11-19 09:20] LABS: BASO % 0.8 % (0-2.0); EOS % 1.7 % (0-4.5); HEMATOCRIT 38.7 % (32.4-45.2); HEMOGLOBIN 12.9 GM/dL (10.7-15.3); LYMPH % 31.5 % (8-40); MCH 29.9 pg (25.7-33.7); MCHC 33.4 g/dl (32.0-36.0); MEAN CELL VOLUME 89.5 fl (80-96); MEAN PLT VOLUME 7.6 fl (7.5-11.1); MONO % 7.4 % (3.8-10.2); NEUT % 58.6 % (42.8-82.8); PLATELET COUNT 330 10^3/uL (134-434); RBC 4.32 M/mm3 (3.60-5.2)
[2022-11-19 09:55] LABS: POTASSIUM 3.7 mmol/L (3.5-5.1)
[2022-11-19 09:58] LABS: CALCIUM 9.7 mg/dL (8.5-10.1)
[2022-11-19 10:00] LABS: BLOOD UREA NITROGEN 16.2 mg/dL (7-18); MAGNESIUM 2.2 mg/dL (1.8-2.4)
[2022-11-19] MEDS ORDERED: GOSERELIN ACETATE 3.6 MG IMPLANT SYRINGE SQ ONE (10:00)
[2022-11-19] MEDS ORDERED: LIDOCAINE HCL 1%, 10 MG/ML (20ML VIAL) ID ONE (10:00)
[2022-11-19 10:04] LABS: BILIRUBIN,TOTAL 0.3 mg/dL (0.2-1); TOT PROT 7.5 g/dl (6.4-8.2)
[2022-11-19 17:20] VITALS: BP 116/84; PULSE 74; RESP 18; TEMP 98.5
[2022-11-20 12:08] LABS: CARCINOEMBRYONIC ANTIGEN 2.2 ng/mL (0.0-4.7)
== END 2022-11-19 10:30 | disposition home or self-care (01) ==
LOC: JONCCHEMO 08:55 → J7W 08:57 → JONCCHEMO 10:30
PROVIDERS: ATTEND Internal Medicine Hematology & Oncology
DX: Z51.11 Encounter for antineoplastic chemotherapy (principal); C50.912 Malignant neoplasm of unspecified site of left female breast; Z17.0 Estrogen receptor positive status [ER+]; C77.3 Secondary and unspecified malignant neoplasm of axilla and upper limb lymph nodes
CPT/HCPCS: 36415; 80053; 82378; 82550; 82553; 83735; 84703; 85025; 86300; 96401; J9202

== ENCOUNTER 2022-12-17 08:40 | Day surgery (SDC) | payer OTHER ==
[2022-12-17 09:34] LABS: BASO % 0.6 % (0-2.0); EOS % 1.7 % (0-4.5); HEMATOCRIT 41.1 % (32.4-45.2); HEMOGLOBIN 14.1 GM/dL (10.7-15.3); LYMPH % 31.9 % (8-40); MCHC 34.4 g/dl (32.0-36.0); MEAN CELL VOLUME 87.1 fl (80-96); MEAN PLT VOLUME 7.3 fl (7.5-11.1); MONO % 7.5 % (3.8-10.2); NEUT % 58.3 % (42.8-82.8); PLATELET COUNT 352 10^3/uL (134-434); RBC 4.72 M/mm3 (3.60-5.2); RDW 13.9 % (11.6-15.6); WHITE BLOOD COUNT 6.3 K/mm3 (4.0-10.0)
[2022-12-17 09:38] LABS: POTASSIUM 3.9 mmol/L (3.5-5.1)
[2022-12-17 09:40] LABS: CALCIUM 9.4 mg/dL (8.5-10.1)
[2022-12-17 09:41] LABS: BLOOD UREA NITROGEN 11.5 mg/dL (7-18); MAGNESIUM 2.3 mg/dL (1.8-2.4)
[2022-12-17 09:45] LABS: TOT PROT 8.1 g/dl (6.4-8.2)
[2022-12-17 09:46] LABS: BILIRUBIN,TOTAL 0.2 mg/dL (0.2-1)
[2022-12-17] MEDS ORDERED: LIDOCAINE HCL 1%, 10 MG/ML (20ML VIAL) ID ONE (10:00)
[2022-12-17] MEDS ORDERED: GOSERELIN ACETATE 3.6 MG IMPLANT SYRINGE SQ ONE (10:00)
[2022-12-17 15:21] VITALS: BP 135/85; PULSE 59; RESP 18; TEMP 98.2
[2022-12-18 08:06] LABS: FOLLICLE STIMULATING HORMONE 7.5 mIU/mL (.); LUTEINIZING HORMONE 0.5 mIU/mL (.)
== END 2022-12-17 10:00 | disposition home or self-care (01) ==
LOC: JONCCHEMO 08:40 → J7W 08:41 → JONCCHEMO 10:00
PROVIDERS: ATTEND Internal Medicine Hematology & Oncology
DX: Z51.11 Encounter for antineoplastic chemotherapy (principal); C50.912 Malignant neoplasm of unspecified site of left female breast; Z17.0 Estrogen receptor positive status [ER+]; C77.3 Secondary and unspecified malignant neoplasm of axilla and upper limb lymph nodes
CPT/HCPCS: 36415; 80053; 82306; 82378; 82550; 82670; 83001; 83002; 83735; 84703; 85025; 86300; 96402; J9202

== ENCOUNTER 2023-01-21 08:40 | Day surgery (SDC) | payer OTHER ==
[2023-01-21 09:28] LABS: BASO % 1.1 % (0-2.0); EOS % 1.5 % (0-4.5); HEMATOCRIT 39.3 % (32.4-45.2); HEMOGLOBIN 13.2 GM/dL (10.7-15.3); LYMPH % 32.5 % (8-40); MCH 29.2 pg (25.7-33.7); MCHC 33.6 g/dl (32.0-36.0); MEAN CELL VOLUME 87.1 fl (80-96); MEAN PLT VOLUME 7.1 fl (7.5-11.1); MONO % 5.5 % (3.8-10.2); NEUT % 59.4 % (42.8-82.8); PLATELET COUNT 329 10^3/uL (134-434); RBC 4.51 M/mm3 (3.60-5.2); RDW 14.2 % (11.6-15.6); WHITE BLOOD COUNT 5.9 K/mm3 (4.0-10.0)
[2023-01-21 09:48] LABS: POTASSIUM 4.2 mmol/L (3.5-5.1)
[2023-01-21 09:51] LABS: ALBUMIN 3.6 g/dl (3.4-5.0); BLOOD UREA NITROGEN 14.7 mg/dL (7-18); CALCIUM 9.2 mg/dL (8.5-10.1); MAGNESIUM 2.1 mg/dL (1.8-2.4)
[2023-01-21 09:56] LABS: BILIRUBIN,TOTAL 0.3 mg/dL (0.2-1); TOT PROT 7.3 g/dl (6.4-8.2)
[2023-01-21] MEDS ORDERED: GOSERELIN ACETATE 3.6 MG IMPLANT SYRINGE SQ ONE (10:00)
[2023-01-21] MEDS ORDERED: LIDOCAINE HCL 1%, 10 MG/ML (20ML VIAL) ID ONE (10:00)
[2023-01-21 16:40] VITALS: BP 141/91; PULSE 78; RESP 18
[2023-01-22 08:08] LABS: FOLLICLE STIMULATING HORMONE 6.6 mIU/mL (.); LUTEINIZING HORMONE < 0.3 mIU/mL (.)
== END 2023-01-21 11:00 | disposition home or self-care (01) ==
LOC: JONCCHEMO 08:40 → J7W 08:41 → JONCCHEMO 11:00
PROVIDERS: ATTEND Internal Medicine Hematology & Oncology
DX: Z51.11 Encounter for antineoplastic chemotherapy (principal); C50.919 Malignant neoplasm of unspecified site of unspecified female breast
CPT/HCPCS: 36415; 72100-TC-FY; 80053; 82550; 82670; 83001; 83002; 83735; 84703; 85025; 86300; 96402; J9202

== ENCOUNTER 2023-03-18 08:51 | Day surgery (SDC) | payer OTHER ==
[2023-03-18 09:30] LABS: BASO % 0.8 % (0-2.0); EOS % 1.6 % (0-4.5); HEMATOCRIT 39.1 % (32.4-45.2); HEMOGLOBIN 13.4 GM/dL (10.7-15.3); LYMPH % 30.9 % (8-40); MCH 29.9 pg (25.7-33.7); MCHC 34.2 g/dl (32.0-36.0); MEAN CELL VOLUME 87.4 fl (80-96); MEAN PLT VOLUME 7.2 fl (7.5-11.1); MONO % 6.3 % (3.8-10.2); NEUT % 60.4 % (42.8-82.8); PLATELET COUNT 348 10^3/uL (134-434); RBC 4.48 M/mm3 (3.60-5.2); RDW 14.1 % (11.6-15.6); WHITE BLOOD COUNT 7.2 K/mm3 (4.0-10.0)
[2023-03-18 09:44] LABS: POTASSIUM 3.6 mmol/L (3.5-5.1)
[2023-03-18 09:48] LABS: CALCIUM 9.3 mg/dL (8.5-10.1)
[2023-03-18 09:49] LABS: ALBUMIN 3.8 g/dl (3.4-5.0); BLOOD UREA NITROGEN 13.5 mg/dL (7-18); MAGNESIUM 2.2 mg/dL (1.8-2.4)
[2023-03-18 09:52] LABS: CREATININE 0.9 mg/dL (0.55-1.3)
[2023-03-18 09:53] LABS: BILIRUBIN,TOTAL 0.2 mg/dL (0.2-1); TOT PROT 7.5 g/dl (6.4-8.2)
[2023-03-18] MEDS ORDERED: LIDOCAINE HCL 1%, 10 MG/ML (20ML VIAL) ID ONE (10:00)
[2023-03-18] MEDS ORDERED: GOSERELIN ACETATE 3.6 MG IMPLANT SYRINGE SQ ONE (10:00)
[2023-03-18 12:48] VITALS: BP 120/93; PULSE 73; RESP 20; TEMP 98.1
[2023-03-19 08:11] LABS: FOLLICLE STIMULATING HORMONE 7.6 mIU/mL (.); LUTEINIZING HORMONE < 0.3 mIU/mL (.)
== END 2023-03-18 11:00 | disposition home or self-care (01) ==
LOC: JONCCHEMO 08:51 → J7W 08:53 → JONCCHEMO 11:00
PROVIDERS: ATTEND Internal Medicine Hematology & Oncology
DX: Z51.11 Encounter for antineoplastic chemotherapy (principal); C50.919 Malignant neoplasm of unspecified site of unspecified female breast
CPT/HCPCS: 36415; 80053; 82378; 82550; 82670; 83001; 83002; 83735; 84703; 85025; 86300; 96402; J9202

== ENCOUNTER 2023-04-22 09:28 | Day surgery (SDC) | payer OTHER ==
[2023-04-22] MEDS ORDERED: GOSERELIN ACETATE 3.6 MG IMPLANT SYRINGE SQ ONE (10:00)
[2023-04-22] MEDS ORDERED: LIDOCAINE HCL 1%, 10 MG/ML (20ML VIAL) ID ONE (10:00)
[2023-04-22 10:19] LABS: BASO % 0.9 % (0-2.0); EOS % 1.7 % (0-4.5); HEMATOCRIT 40.5 % (32.4-45.2); HEMOGLOBIN 13.2 GM/dL (10.7-15.3); LYMPH % 28.9 % (8-40); MCH 29.6 pg (25.7-33.7); MCHC 32.6 g/dl (32.0-36.0); MEAN CELL VOLUME 90.5 fl (80-96); MONO % 7.1 % (3.8-10.2); NEUT % 61.4 % (42.8-82.8); PLATELET COUNT 352 10^3/uL (134-434); RBC 4.47 M/mm3 (3.60-5.2); WHITE BLOOD COUNT 7.4 K/mm3 (4.0-10.0)
[2023-04-22 10:55] LABS: POTASSIUM 3.8 mmol/L (3.5-5.1)
[2023-04-22 10:59] LABS: CALCIUM 9.4 mg/dL (8.5-10.1)
[2023-04-22 11:00] LABS: ALBUMIN 3.9 g/dl (3.4-5.0); BLOOD UREA NITROGEN 14.5 mg/dL (7-18); MAGNESIUM 2.3 mg/dL (1.8-2.4)
[2023-04-22 11:04] LABS: BILIRUBIN,TOTAL 0.6 mg/dL (0.2-1)
[2023-04-22 11:05] LABS: TOT PROT 7.7 g/dl (6.4-8.2)
[2023-04-22 11:26] LABS: GAMMA GLUTAMYL TRANSPEPTIDASE 45 U/L (5-85)
[2023-04-22 16:28] VITALS: BP 131/87; PULSE 78; RESP 18; TEMP 98.1
[2023-04-23 08:07] LABS: FOLLICLE STIMULATING HORMONE 6.6 mIU/mL (.); LUTEINIZING HORMONE < 0.3 mIU/mL (.)
== END 2023-04-22 10:55 | disposition home or self-care (01) ==
LOC: JONCCHEMO 09:28 → J7W 09:30 → JONCCHEMO 10:55
PROVIDERS: ATTEND Internal Medicine Hematology & Oncology
DX: Z51.11 Encounter for antineoplastic chemotherapy (principal); C50.919 Malignant neoplasm of unspecified site of unspecified female breast
CPT/HCPCS: 36415; 80053; 82378; 82550; 82670; 82977; 83001; 83002; 83735; 84703; 85025; 86300; 96402; J9202

== ENCOUNTER 2023-05-27 13:16 | Day surgery (SDC) | payer OTHER ==
[2023-05-27 13:44] VITALS: BP 124/70; PULSE 82; RESP 18; TEMP 98.1
[2023-05-27 14:14] LABS: BASO % 0.7 % (0-2.0); HEMATOCRIT 41.4 % (32.4-45.2); HEMOGLOBIN 13.6 GM/dL (10.7-15.3); LYMPH % 33.8 % (8-40); MCH 29.4 pg (25.7-33.7); MCHC 32.9 g/dl (32.0-36.0); MEAN CELL VOLUME 89.2 fl (80-96); MEAN PLT VOLUME 7.2 fl (7.5-11.1); MONO % 6.7 % (3.8-10.2); NEUT % 56.8 % (42.8-82.8); PLATELET COUNT 382 10^3/uL (134-434); RBC 4.64 M/mm3 (3.60-5.2); RDW 13.8 % (11.6-15.6); WHITE BLOOD COUNT 8.1 K/mm3 (4.0-10.0)
[2023-05-27 14:35] LABS: POTASSIUM 3.9 mmol/L (3.5-5.1)
[2023-05-27 14:37] LABS: CALCIUM 9.2 mg/dL (8.5-10.1)
[2023-05-27 14:38] LABS: ALBUMIN 3.8 g/dl (3.4-5.0); BLOOD UREA NITROGEN 13.2 mg/dL (7-18); MAGNESIUM 2.2 mg/dL (1.8-2.4)
[2023-05-27 14:42] LABS: TOT PROT 7.9 g/dl (6.4-8.2)
[2023-05-27 14:51] LABS: BILIRUBIN,TOTAL 0.3 mg/dL (0.2-1)
[2023-05-29 09:37] LABS: FOLLICLE STIMULATING HORMONE 6.3 mIU/mL (.); LUTEINIZING HORMONE < 0.3 mIU/mL (.)
== END 2023-05-27 13:51 | disposition home or self-care (01) ==
LOC: JONCCHEMO 13:16 → J7W 13:17 → JONCCHEMO 13:51
PROVIDERS: ATTEND Internal Medicine Hematology & Oncology
DX: Z51.11 Encounter for antineoplastic chemotherapy (principal); C50.919 Malignant neoplasm of unspecified site of unspecified female breast
CPT/HCPCS: 36415; 80053; 82378; 82550; 82670; 83001; 83002; 83735; 84703; 85025; 86300; 96402; J9202

== ENCOUNTER 2023-06-24 12:43 | Day surgery (SDC) | payer OTHER ==
[2023-06-24 12:57] LABS: BASO % 0.7 % (0-2.0); EOS % 1.1 % (0-4.5); HEMATOCRIT 40.3 % (32.4-45.2); HEMOGLOBIN 13.4 GM/dL (10.7-15.3); LYMPH % 32.3 % (8-40); MCH 29.5 pg (25.7-33.7); MCHC 33.3 g/dl (32.0-36.0); MEAN CELL VOLUME 88.5 fl (80-96); MEAN PLT VOLUME 6.7 fl (7.5-11.1); MONO % 7.9 % (3.8-10.2); PLATELET COUNT 387 10^3/uL (134-434); RBC 4.55 M/mm3 (3.60-5.2); RDW 14.3 % (11.6-15.6); WHITE BLOOD COUNT 6.6 K/mm3 (4.0-10.0)
[2023-06-24 13:28] LABS: POTASSIUM 3.5 mmol/L (3.5-5.1)
[2023-06-24 13:33] LABS: CALCIUM 9.3 mg/dL (8.5-10.1)
[2023-06-24 13:34] LABS: ALBUMIN 3.8 g/dl (3.4-5.0); BLOOD UREA NITROGEN 12.6 mg/dL (7-18)
[2023-06-24 13:37] LABS: CREATININE 0.9 mg/dL (0.55-1.3)
[2023-06-24 13:39] LABS: BILIRUBIN,TOTAL 0.3 mg/dL (0.2-1)
[2023-06-24 17:57] VITALS: BP 131/82; PULSE 75; RESP 18; TEMP 98.5
[2023-06-25 08:06] LABS: CARCINOEMBRYONIC ANTIGEN 1.9 ng/mL (0.0-4.7)
[2023-06-25 10:10] LABS: FOLLICLE STIMULATING HORMONE 6.7 mIU/mL (.); LUTEINIZING HORMONE < 0.3 mIU/mL (.)
== END 2023-06-24 14:25 | disposition home or self-care (01) ==
LOC: JONCCHEMO 12:43
PROVIDERS: ATTEND Internal Medicine Hematology & Oncology
DX: Z51.11 Encounter for antineoplastic chemotherapy (principal); C50.912 Malignant neoplasm of unspecified site of left female breast
CPT/HCPCS: 36415; 72100-TC-FY; 76882-TC-RT-FY; 80053; 82378; 82550; 83001; 83002; 83735; 84703; 85025; 86300; 93971-TC; 96402; J9202

== ENCOUNTER 2023-07-22 09:54 | Day surgery (SDC) | payer OTHER ==
[2023-07-22 10:12] LABS: EOS % 1.3 % (0-4.5); HEMATOCRIT 39.7 % (32.4-45.2); HEMOGLOBIN 13.1 GM/dL (10.7-15.3); LYMPH % 30.9 % (8-40); MCH 29.6 pg (25.7-33.7); MCHC 33.1 g/dl (32.0-36.0); MEAN CELL VOLUME 89.4 fl (80-96); MEAN PLT VOLUME 6.9 fl (7.5-11.1); MONO % 6.5 % (3.8-10.2); NEUT % 60.3 % (42.8-82.8); PLATELET COUNT 331 10^3/uL (134-434); RBC 4.44 M/mm3 (3.60-5.2); RDW 13.8 % (11.6-15.6); WHITE BLOOD COUNT 6.1 K/mm3 (4.0-10.0)
[2023-07-22 10:34] LABS: POTASSIUM 3.8 mmol/L (3.5-5.1)
[2023-07-22 10:36] LABS: CALCIUM 8.6 mg/dL (8.5-10.1)
[2023-07-22 10:37] LABS: ALBUMIN 3.7 g/dl (3.4-5.0); BLOOD UREA NITROGEN 13.8 mg/dL (7-18); MAGNESIUM 2.1 mg/dL (1.8-2.4)
[2023-07-22 10:40] LABS: CREATININE 0.9 mg/dL (0.55-1.3)
[2023-07-22 10:41] LABS: BILIRUBIN,TOTAL 0.5 mg/dL (0.2-1); TOT PROT 7.5 g/dl (6.4-8.2)
[2023-07-22] MEDS: LIDOCAINE HCL 1%, 10 MG/ML (20ML VIAL) ID ONE (11:02)
[2023-07-22] MEDS: GOSERELIN ACETATE 3.6 MG IMPLANT SYRINGE SQ ONE (11:03)
[2023-07-22 11:12] VITALS: BP 134/80; PULSE 83; RESP 20; TEMP 98
[2023-07-23 08:19] LABS: CARCINOEMBRYONIC ANTIGEN 1.5 ng/mL (0.0-4.7); FOLLICLE STIMULATING HORMONE 6.3 mIU/mL (.); LUTEINIZING HORMONE < 0.3 mIU/mL (.)
== END 2023-07-22 11:15 | disposition home or self-care (01) ==
LOC: JONCCHEMO 09:54 → J7W 09:54 → JONCCHEMO 11:15
PROVIDERS: ATTEND Internal Medicine Hematology & Oncology
DX: Z51.11 Encounter for antineoplastic chemotherapy (principal); C50.912 Malignant neoplasm of unspecified site of left female breast
CPT/HCPCS: 36415; 80053; 82378; 82550; 82670; 83001; 83002; 83735; 84703; 85025; 86300; 96402; J9202

== ENCOUNTER 2023-08-19 09:17 | Day surgery (SDC) | payer OTHER ==
[2023-08-19 09:42] LABS: BASO % 0.6 % (0-2.0); EOS % 1.9 % (0-4.5); HEMATOCRIT 39.1 % (32.4-45.2); MCH 29.8 pg (25.7-33.7); MCHC 33.3 g/dl (32.0-36.0); MEAN CELL VOLUME 89.6 fl (80-96); MEAN PLT VOLUME 7.1 fl (7.5-11.1); MONO % 5.7 % (3.8-10.2); NEUT % 58.8 % (42.8-82.8); PLATELET COUNT 319 10^3/uL (134-434); RBC 4.37 M/mm3 (3.60-5.2); RDW 13.7 % (11.6-15.6); WHITE BLOOD COUNT 6.4 K/mm3 (4.0-10.0)
[2023-08-19 10:00] LABS: POTASSIUM 3.7 mmol/L (3.5-5.1)
[2023-08-19 10:03] LABS: ALBUMIN 3.8 g/dl (3.4-5.0); BLOOD UREA NITROGEN 17.6 mg/dL (7-18); CALCIUM 9.4 mg/dL (8.5-10.1); MAGNESIUM 2.1 mg/dL (1.8-2.4)
[2023-08-19 10:08] LABS: BILIRUBIN,TOTAL 0.4 mg/dL (0.2-1); TOT PROT 7.2 g/dl (6.4-8.2)
[2023-08-19] MEDS: GOSERELIN ACETATE 3.6 MG IMPLANT SYRINGE SQ ONE (10:28)
[2023-08-19] MEDS: LIDOCAINE HCL 1%, 10 MG/ML (20ML VIAL) ID ONE (10:31)
[2023-08-19 11:53] VITALS: BP 125/81; PULSE 76; RESP 20; TEMP 98.2
[2023-08-20 08:11] LABS: LUTEINIZING HORMONE < 0.3 mIU/mL (.)
== END 2023-08-19 10:50 | disposition home or self-care (01) ==
LOC: JONCCHEMO 09:17 → J7W 09:17 → JONCCHEMO 10:50
PROVIDERS: ATTEND Internal Medicine Hematology & Oncology
DX: Z51.11 Encounter for antineoplastic chemotherapy (principal); C50.912 Malignant neoplasm of unspecified site of left female breast
CPT/HCPCS: 36415; 80053; 82378; 82550; 82670; 83001; 83002; 83735; 84703; 85025; 86300; 96402; J9202

== ENCOUNTER 2023-09-16 08:49 | Day surgery (SDC) | payer OTHER ==
[2023-09-16 09:37] LABS: BASO % 0.6 % (0-2.0); EOS % 1.1 % (0-4.5); HEMATOCRIT 39.6 % (32.4-45.2); HEMOGLOBIN 13.3 GM/dL (10.7-15.3); LYMPH % 29.9 % (8-40); MCH 29.9 pg (25.7-33.7); MCHC 33.6 g/dl (32.0-36.0); MEAN CELL VOLUME 89.1 fl (80-96); MEAN PLT VOLUME 7.1 fl (7.5-11.1); MONO % 6.6 % (3.8-10.2); NEUT % 61.8 % (42.8-82.8); PLATELET COUNT 342 10^3/uL (134-434); RBC 4.44 M/mm3 (3.60-5.2); RDW 13.9 % (11.6-15.6); WHITE BLOOD COUNT 6.9 K/mm3 (4.0-10.0)
[2023-09-16] MEDS: LIDOCAINE HCL 1%, 10 MG/ML (20ML VIAL) ID ONE (09:54)
[2023-09-16] MEDS: GOSERELIN ACETATE 3.6 MG IMPLANT SYRINGE SQ ONE (09:54)
[2023-09-16 10:00] LABS: POTASSIUM 3.6 mmol/L (3.5-5.1)
[2023-09-16 10:01] LABS: CALCIUM 9.2 mg/dL (8.5-10.1)
[2023-09-16 10:02] LABS: ALBUMIN 3.8 g/dl (3.4-5.0); BLOOD UREA NITROGEN 12.3 mg/dL (7-18); MAGNESIUM 2.2 mg/dL (1.8-2.4)
[2023-09-16 10:05] LABS: CREATININE 0.9 mg/dL (0.55-1.3)
[2023-09-16 10:07] LABS: BILIRUBIN,TOTAL 0.3 mg/dL (0.2-1); TOT PROT 7.3 g/dl (6.4-8.2)
[2023-09-16 11:15] LABS: PH,URINE 7.5 (5.0-8.0); URINE APPEARANCE CLEAR; URINE BILIRUBIN NEGATIVE (NEGATIVE); URINE COLOR YELLOW; URINE GLUCOSE (UA) NEGATIVE (NEGATIVE); URINE KETONE NEGATIVE (NEGATIVE); URINE LEUK ESTERASE TRACE (NEGATIVE); URINE NITRITE NEGATIVE (NEGATIVE); URINE PROTEIN NEGATIVE (NEGATIVE); URINE UROBILINOGEN 0.2 mg/dL (0.2-1.0)
[2023-09-16 11:50] LABS: EPI CELLS 3.9 /uL (0-25.1); URINE RBC 3.5 /uL (0-23.9); URINE WBC 2.3 /uL (0-25.8)
[2023-09-16 11:51] LABS: URINE BACTERIA 9.6 /uL (0-1359)
[2023-09-16 12:11] VITALS: BP 121/85; PULSE 82; RESP 20; TEMP 98.4
[2023-09-17 08:10] LABS: FOLLICLE STIMULATING HORMONE 6.8 mIU/mL (.); LUTEINIZING HORMONE < 0.3 mIU/mL (.)
== END 2023-09-16 10:15 | disposition home or self-care (01) ==
LOC: JONCCHEMO 08:49 → J7W 08:50 → JONCCHEMO 10:15
PROVIDERS: ATTEND Internal Medicine Hematology & Oncology
DX: Z51.11 Encounter for antineoplastic chemotherapy (principal); C50.912 Malignant neoplasm of unspecified site of left female breast
CPT/HCPCS: 36415; 80053; 81003; 82378; 82550; 82670; 83001; 83002; 83735; 84703; 85025; 86300; 87086; 96401; J9202

== ENCOUNTER 2023-11-18 09:21 | Day surgery (SDC) | payer OTHER ==
[2023-11-18 10:06] LABS: EOS % 1.2 % (0-4.5); HEMATOCRIT 39.1 % (32.4-45.2); HEMOGLOBIN 13.2 GM/dL (10.7-15.3); LYMPH % 31.7 % (8-40); MCH 29.7 pg (25.7-33.7); MCHC 33.7 g/dl (32.0-36.0); MEAN CELL VOLUME 88.1 fl (80-96); MEAN PLT VOLUME 7.3 fl (7.5-11.1); MONO % 7.1 % (3.8-10.2); PLATELET COUNT 325 10^3/uL (134-434); RBC 4.44 M/mm3 (3.60-5.2); WHITE BLOOD COUNT 5.9 K/mm3 (4.0-10.0)
[2023-11-18] MEDS: GOSERELIN ACETATE 3.6 MG IMPLANT SYRINGE SQ ONE (10:40)
[2023-11-18] MEDS: LIDOCAINE HCL 1%, 10 MG/ML (20ML VIAL) ID ONE (10:44)
[2023-11-18 10:57] VITALS: BP 120/72; PULSE 76; RESP 18; TEMP 98.7
[2023-11-18 11:03] LABS: POTASSIUM 3.6 mmol/L (3.5-5.1)
[2023-11-18 11:09] LABS: ALBUMIN 3.8 g/dl (3.4-5.0); BLOOD UREA NITROGEN 15.6 mg/dL (7-18)
[2023-11-18 11:12] LABS: CREATININE 0.9 mg/dL (0.55-1.3)
[2023-11-18 11:14] LABS: BILIRUBIN,TOTAL 0.3 mg/dL (0.2-1); TOT PROT 7.4 g/dl (6.4-8.2)
[2023-11-19 08:10] LABS: CARCINOEMBRYONIC ANTIGEN 1.9 ng/mL (0.0-4.7); LUTEINIZING HORMONE < 0.3 mIU/mL (.)
== END 2023-11-18 10:55 | disposition home or self-care (01) ==
LOC: JONCCHEMO 09:21 → J7W 09:21 → JONCCHEMO 10:55
PROVIDERS: ATTEND Internal Medicine Hematology & Oncology
DX: Z51.11 Encounter for antineoplastic chemotherapy (principal); C50.912 Malignant neoplasm of unspecified site of left female breast
CPT/HCPCS: 36415; 80053; 82378; 82550; 82670; 83001; 83002; 83735; 84703; 85025; 86300; 96402; J9202

== ENCOUNTER 2023-12-16 09:00 | Day surgery (SDC) | payer OTHER ==
[2023-12-16 09:43] LABS: BASO % 0.6 % (0-2.0); EOS % 1.4 % (0-4.5); HEMATOCRIT 40.2 % (32.4-45.2); HEMOGLOBIN 13.6 GM/dL (10.7-15.3); LYMPH % 28.2 % (8-40); MCHC 33.7 g/dl (32.0-36.0); MEAN CELL VOLUME 88.9 fl (80-96); MEAN PLT VOLUME 7.1 fl (7.5-11.1); MONO % 4.7 % (3.8-10.2); NEUT % 65.1 % (42.8-82.8); PLATELET COUNT 367 10^3/uL (134-434); RBC 4.52 M/mm3 (3.60-5.2); RDW 13.6 % (11.6-15.6); WHITE BLOOD COUNT 6.5 K/mm3 (4.0-10.0)
[2023-12-16 10:04] LABS: CHLORIDE 108 mmol/L (98-107); POTASSIUM 3.7 mmol/L (3.5-5.1); SODIUM 142 mmol/L (136-145)
[2023-12-16 10:08] LABS: ALBUMIN 3.9 g/dl (3.4-5.0)
[2023-12-16 10:09] LABS: ANION GAP 9 mmol/L (4-13); CALCIUM 9.3 mg/dL (8.5-10.1); CO2 25 mmol/L (21-32); MAGNESIUM 2.1 mg/dL (1.8-2.4)
[2023-12-16 10:10] LABS: CHOLESTEROL 168 mg/dL (50-200); CREATININE 1.1 mg/dL (0.55-1.3); GLUCOSE,RANDOM 138 mg/dL (74-106); SGOT/AST 18 U/L (15-37)
[2023-12-16 10:11] LABS: SGPT/ALT 24 U/L (13-61); TOT PROT 7.6 g/dl (6.4-8.2)
[2023-12-16 10:12] LABS: ALK PHOS 126 U/L (45-117); LDL CHOLESTEROL (ONLY SJRH) 89 mg/dL (5-100)
[2023-12-16 10:13] LABS: HDL CHOLESTEROL 61 mg/dL (40-60)
[2023-12-16 10:19] LABS: BILIRUBIN,TOTAL 0.5 mg/dL (0.2-1)
[2023-12-16] MEDS: GOSERELIN ACETATE 3.6 MG IMPLANT SYRINGE SQ ONE (10:32)
[2023-12-16] MEDS: LIDOCAINE HCL 1%, 10 MG/ML (20ML VIAL) ID ONE (10:33)
[2023-12-16 15:08] VITALS: BP 130/64; PULSE 63; RESP 20; TEMP 97.8
[2023-12-17 10:12] LABS: CARCINOEMBRYONIC ANTIGEN 1.8 ng/mL (0.0-4.7); FOLLICLE STIMULATING HORMONE 6.6 mIU/mL (.); LUTEINIZING HORMONE < 0.3 mIU/mL (.)
== END 2023-12-16 11:00 | disposition home or self-care (01) ==
LOC: J7W 09:00 → JONCCHEMO 09:00
PROVIDERS: ATTEND Internal Medicine Hematology & Oncology
DX: Z12.11 Encounter for screening for malignant neoplasm of colon (principal); C50.919 Malignant neoplasm of unspecified site of unspecified female breast
CPT/HCPCS: 36415; 80053; 80061; 82378; 82550; 82670; 83001; 83002; 83036; 83735; 84439; 84443; 84703; 85025; 86300; 96402; J9202

== ENCOUNTER 2024-01-13 08:43 | Day surgery (SDC) | payer OTHER ==
[2024-01-13 09:45] LABS: BASO % 0.6 % (0-2.0); EOS % 1.9 % (0-4.5); HEMATOCRIT 38.7 % (32.4-45.2); HEMOGLOBIN 12.9 GM/dL (10.7-15.3); LYMPH % 26.7 % (8-40); MCH 29.7 pg (25.7-33.7); MCHC 33.2 g/dl (32.0-36.0); MEAN CELL VOLUME 89.5 fl (80-96); MEAN PLT VOLUME 6.9 fl (7.5-11.1); MONO % 6.9 % (3.8-10.2); NEUT % 63.9 % (42.8-82.8); PLATELET COUNT 347 10^3/uL (134-434); RBC 4.32 M/mm3 (3.60-5.2); RDW 13.7 % (11.6-15.6)
[2024-01-13] MEDS: LIDOCAINE HCL 1%, 10 MG/ML (20ML VIAL) ID ONE (09:55)
[2024-01-13] MEDS: GOSERELIN ACETATE 3.6 MG IMPLANT SYRINGE SQ ONE (09:55)
[2024-01-13 10:07] LABS: CALCIUM 9.6 mg/dL (8.5-10.1)
[2024-01-13 10:08] LABS: ALBUMIN 3.7 g/dl (3.4-5.0); BLOOD UREA NITROGEN 11.4 mg/dL (7-18); MAGNESIUM 2.3 mg/dL (1.8-2.4)
[2024-01-13 10:11] LABS: CREATININE 0.9 mg/dL (0.55-1.3)
[2024-01-13 10:12] LABS: TOT PROT 7.2 g/dl (6.4-8.2)
[2024-01-13 10:32] LABS: BILIRUBIN,TOTAL 0.5 mg/dL (0.2-1)
[2024-01-13 17:52] VITALS: BP 126/87; PULSE 77; RESP 20; TEMP 98.4
[2024-01-14 08:11] LABS: CARCINOEMBRYONIC ANTIGEN 1.9 ng/mL (0.0-4.7); FOLLICLE STIMULATING HORMONE 7.2 mIU/mL (.); LUTEINIZING HORMONE < 0.3 mIU/mL (.)
== END 2024-01-13 10:00 | disposition home or self-care (01) ==
LOC: JONCCHEMO 08:43 → J7W 08:44 → JONCCHEMO 10:00
PROVIDERS: ATTEND Internal Medicine Hematology & Oncology
DX: Z51.11 Encounter for antineoplastic chemotherapy (principal); C50.912 Malignant neoplasm of unspecified site of left female breast
CPT/HCPCS: 36415; 80053; 82378; 82550; 82553; 82670; 83001; 83002; 83735; 84703; 85025; 86300; 96402; J9202

== ENCOUNTER 2024-02-10 09:11 | Day surgery (SDC) | payer OTHER ==
[2024-02-10 10:01] LABS: BASO % 0.5 % (0-2.0); EOS % 3.3 % (0-4.5); HEMATOCRIT 39.8 % (32.4-45.2); HEMOGLOBIN 13.3 GM/dL (10.7-15.3); LYMPH % 32.4 % (8-40); MCH 29.7 pg (25.7-33.7); MCHC 33.5 g/dl (32.0-36.0); MEAN CELL VOLUME 88.5 fl (80-96); MONO % 8.9 % (3.8-10.2); NEUT % 54.9 % (42.8-82.8); PLATELET COUNT 319 10^3/uL (134-434); RDW 14.1 % (11.6-15.6); WHITE BLOOD COUNT 5.8 K/mm3 (4.0-10.0)
[2024-02-10 10:35] LABS: CHLORIDE 109 mmol/L (98-107); POTASSIUM 3.7 mmol/L (3.5-5.1); SODIUM 142 mmol/L (136-145)
[2024-02-10 10:37] LABS: ALBUMIN 3.8 g/dl (3.4-5.0); ANION GAP 8 mmol/L (4-13); BLOOD UREA NITROGEN 10.6 mg/dL (7-18); CALCIUM 9.5 mg/dL (8.5-10.1); CO2 26 mmol/L (21-32); MAGNESIUM 2.2 mg/dL (1.8-2.4)
[2024-02-10 10:38] LABS: GLUCOSE,RANDOM 91 mg/dL (74-106)
[2024-02-10 10:40] LABS: SGOT/AST 18 U/L (15-37); SGPT/ALT 28 U/L (13-61)
[2024-02-10] MEDS: GOSERELIN ACETATE 3.6 MG IMPLANT SYRINGE SQ ONE (10:41)
[2024-02-10] MEDS: LIDOCAINE HCL 1%, 10 MG/ML (20ML VIAL) ID ONE (10:41)
[2024-02-10 10:42] LABS: BILIRUBIN,TOTAL 0.3 mg/dL (0.2-1); CREATININE 0.8 mg/dL (0.55-1.3); TOT PROT 7.4 g/dl (6.4-8.2)
[2024-02-10 10:43] LABS: ALK PHOS 103 U/L (45-117)
[2024-02-10 18:11] VITALS: BP 135/89; PULSE 78; RESP 18; TEMP 98
[2024-02-12 08:11] LABS: FOLLICLE STIMULATING HORMONE 6.7 mIU/mL (.); LUTEINIZING HORMONE < 0.3 mIU/mL (.)
== END 2024-02-10 11:00 | disposition home or self-care (01) ==
LOC: J7W 09:11 → JONCCHEMO 09:11
PROVIDERS: ATTEND Internal Medicine Hematology & Oncology
DX: Z51.11 Encounter for antineoplastic chemotherapy (principal); C50.912 Malignant neoplasm of unspecified site of left female breast
CPT/HCPCS: 36415; 80053; 82378; 82550; 82670; 83001; 83002; 83735; 84703; 85025; 86300; 96402; J9202

== ENCOUNTER 2024-03-09 09:20 | Day surgery (SDC) | payer OTHER ==
[2024-03-09] MEDS: LIDOCAINE HCL 1%, 10 MG/ML (20ML VIAL) ID ONE (10:14)
[2024-03-09] MEDS: GOSERELIN ACETATE 3.6 MG IMPLANT SYRINGE SQ ONE (10:14)
[2024-03-09 10:15] LABS: BASO % 0.5 % (0-2.0); EOS % 1.8 % (0-4.5); HEMATOCRIT 39.4 % (32.4-45.2); HEMOGLOBIN 12.9 GM/dL (10.7-15.3); LYMPH % 31.2 % (8-40); MCH 29.5 pg (25.7-33.7); MCHC 32.7 g/dl (32.0-36.0); MEAN CELL VOLUME 90.3 fl (80-96); MEAN PLT VOLUME 6.9 fl (7.5-11.1); MONO % 7.2 % (3.8-10.2); NEUT % 59.3 % (42.8-82.8); PLATELET COUNT 328 10^3/uL (134-434); RBC 4.36 M/mm3 (3.60-5.2); RDW 14.1 % (11.6-15.6); WHITE BLOOD COUNT 6.4 K/mm3 (4.0-10.0)
[2024-03-09 11:21] VITALS: BP 133/81; PULSE 88; RESP 20; TEMP 98.7
[2024-03-09 11:21] LABS: CHLORIDE 108 mmol/L (98-107); SODIUM 142 mmol/L (136-145)
[2024-03-09 11:27] LABS: CALCIUM 9.7 mg/dL (8.5-10.1)
[2024-03-09 11:28] LABS: ALBUMIN 3.7 g/dl (3.4-5.0); ANION GAP 4 mmol/L (4-13); BLOOD UREA NITROGEN 12.6 mg/dL (7-18); CO2 30 mmol/L (21-32); GLUCOSE,RANDOM 89 mg/dL (74-106); MAGNESIUM 2.3 mg/dL (1.8-2.4)
[2024-03-09 11:31] LABS: CREATININE 0.9 mg/dL (0.55-1.3); SGOT/AST 18 U/L (15-37); SGPT/ALT 31 U/L (13-61)
[2024-03-09 11:33] LABS: BILIRUBIN,TOTAL 0.5 mg/dL (0.2-1); TOT PROT 7.1 g/dl (6.4-8.2)
[2024-03-09 11:35] LABS: ALK PHOS 114 U/L (45-117)
[2024-03-10 08:11] LABS: CARCINOEMBRYONIC ANTIGEN 1.9 ng/mL (0.0-4.7); FOLLICLE STIMULATING HORMONE 6.5 mIU/mL (.); LUTEINIZING HORMONE < 0.3 mIU/mL (.)
== END 2024-03-09 10:20 | disposition home or self-care (01) ==
LOC: JONCCHEMO 09:20 → J7W 09:20 → JONCCHEMO 10:20
PROVIDERS: ATTEND Internal Medicine Hematology & Oncology
DX: Z51.11 Encounter for antineoplastic chemotherapy (principal); C50.912 Malignant neoplasm of unspecified site of left female breast
CPT/HCPCS: 36415; 80053; 82378; 82550; 82553; 82670; 83001; 83002; 83735; 84703; 85025; 86300; 96402; J9202

== ENCOUNTER 2024-04-06 08:51 | Day surgery (SDC) | payer OTHER ==
[2024-04-06 09:42] LABS: BASO % 0.7 % (0-2.0); EOS % 1.4 % (0-4.5); HEMATOCRIT 39.6 % (32.4-45.2); HEMOGLOBIN 13.3 GM/dL (10.7-15.3); LYMPH % 29.7 % (8-40); MCH 29.7 pg (25.7-33.7); MCHC 33.5 g/dl (32.0-36.0); MEAN CELL VOLUME 88.5 fl (80-96); MEAN PLT VOLUME 6.9 fl (7.5-11.1); MONO % 6.2 % (3.8-10.2); PLATELET COUNT 346 10^3/uL (134-434); RBC 4.47 M/mm3 (3.60-5.2); RDW 14.1 % (11.6-15.6); WHITE BLOOD COUNT 6.6 K/mm3 (4.0-10.0)
[2024-04-06 09:53] LABS: CHLORIDE 106 mmol/L (98-107); POTASSIUM 3.7 mmol/L (3.5-5.1); SODIUM 141 mmol/L (136-145)
[2024-04-06 09:55] LABS: ALBUMIN 3.9 g/dl (3.4-5.0); ANION GAP 7 mmol/L (4-13); BLOOD UREA NITROGEN 10.6 mg/dL (7-18); CALCIUM 9.5 mg/dL (8.5-10.1); CO2 27 mmol/L (21-32); GLUCOSE,RANDOM 90 mg/dL (74-106)
[2024-04-06 09:58] LABS: SGOT/AST 21 U/L (15-37); SGPT/ALT 27 U/L (13-61)
[2024-04-06 10:00] LABS: BILIRUBIN,TOTAL 0.5 mg/dL (0.2-1); TOT PROT 7.3 g/dl (6.4-8.2)
[2024-04-06 10:01] LABS: ALK PHOS 121 U/L (45-117)
[2024-04-06] MEDS: GOSERELIN ACETATE 3.6 MG IMPLANT SYRINGE SQ ONE (10:25)
[2024-04-06] MEDS: LIDOCAINE HCL 1%, 10 MG/ML (20ML VIAL) ID ONE (10:25)
[2024-04-06 11:34] VITALS: BP 114/75; PULSE 82; RESP 18; TEMP 98.2
[2024-04-07 08:12] LABS: FOLLICLE STIMULATING HORMONE 6.7 mIU/mL (.); LUTEINIZING HORMONE < 0.3 mIU/mL (.)
== END 2024-04-06 10:30 | disposition home or self-care (01) ==
LOC: JONCCHEMO 08:51 → J7W 08:53 → JONCCHEMO 10:30
PROVIDERS: ATTEND Internal Medicine Hematology & Oncology
DX: Z51.11 Encounter for antineoplastic chemotherapy (principal); C50.919 Malignant neoplasm of unspecified site of unspecified female breast
CPT/HCPCS: 36415; 80053; 82378; 82550; 82670; 83001; 83002; 83735; 84703; 85025; 86300; 96402; J9202

== ENCOUNTER 2024-05-04 09:44 | Day surgery (SDC) | payer OTHER ==
[2024-05-04 10:48] LABS: BASO % 0.6 % (0-2.0); EOS % 2.2 % (0-4.5); HEMATOCRIT 40.6 % (32.4-45.2); HEMOGLOBIN 13.7 GM/dL (10.7-15.3); LYMPH % 27.3 % (8-40); MCHC 33.7 g/dl (32.0-36.0); MEAN CELL VOLUME 89.1 fl (80-96); MEAN PLT VOLUME 7.5 fl (7.5-11.1); MONO % 6.1 % (3.8-10.2); NEUT % 63.8 % (42.8-82.8); PLATELET COUNT 367 10^3/uL (134-434); RBC 4.56 M/mm3 (3.60-5.2); RDW 14.4 % (11.6-15.6); WHITE BLOOD COUNT 8.3 K/mm3 (4.0-10.0)
[2024-05-04 11:04] LABS: CHLORIDE 107 mmol/L (98-107); POTASSIUM 3.8 mmol/L (3.5-5.1); SODIUM 140 mmol/L (136-145)
[2024-05-04 11:08] LABS: ALBUMIN 4.2 g/dl (3.4-5.0); ANION GAP 10 mmol/L (4-13); BLOOD UREA NITROGEN 18.9 mg/dL (7-18); CALCIUM 9.8 mg/dL (8.5-10.1); CO2 22 mmol/L (21-32); GLUCOSE,RANDOM 139 mg/dL (74-106); MAGNESIUM 2.2 mg/dL (1.8-2.4)
[2024-05-04 11:11] LABS: CREATININE 1.1 mg/dL (0.55-1.3); SGOT/AST 15 U/L (15-37); SGPT/ALT 28 U/L (13-61)
[2024-05-04 11:13] LABS: BILIRUBIN,TOTAL 0.3 mg/dL (0.2-1); TOT PROT 7.8 g/dl (6.4-8.2)
[2024-05-04 11:14] LABS: ALK PHOS 130 U/L (45-117)
[2024-05-04] MEDS: GOSERELIN ACETATE 3.6 MG IMPLANT SYRINGE SQ ONE (11:33)
[2024-05-04] MEDS: LIDOCAINE HCL 1%, 10 MG/ML (20ML VIAL) ID ONE (11:34)
[2024-05-04 18:01] VITALS: BP 120/96; PULSE 86; RESP 20; TEMP 98.5
[2024-05-06 08:09] LABS: CARCINOEMBRYONIC ANTIGEN 1.8 ng/mL (0.0-4.7); FOLLICLE STIMULATING HORMONE 7.7 mIU/mL (.); LUTEINIZING HORMONE < 0.3 mIU/mL (.)
== END 2024-05-04 11:45 | disposition home or self-care (01) ==
LOC: JONCCHEMO 09:44 → J7W 10:04 → JONCCHEMO 11:45
PROVIDERS: ATTEND Internal Medicine Hematology & Oncology
DX: Z51.11 Encounter for antineoplastic chemotherapy (principal); C50.919 Malignant neoplasm of unspecified site of unspecified female breast
CPT/HCPCS: 36415; 80053; 82378; 82550; 82670; 83001; 83002; 83735; 84703; 85025; 86300; 96402; J9202

== ENCOUNTER 2024-06-01 09:18 | Day surgery (SDC) | payer OTHER ==
[2024-06-01 09:29] LABS: BASO % 0.7 % (0-2.0); EOS % 1.6 % (0-4.5); HEMATOCRIT 39.4 % (32.4-45.2); HEMOGLOBIN 13.2 GM/dL (10.7-15.3); MCH 29.9 pg (25.7-33.7); MCHC 33.5 g/dl (32.0-36.0); MEAN CELL VOLUME 89.2 fl (80-96); MEAN PLT VOLUME 6.8 fl (7.5-11.1); MONO % 5.9 % (3.8-10.2); NEUT % 64.8 % (42.8-82.8); PLATELET COUNT 382 10^3/uL (134-434); RBC 4.42 M/mm3 (3.60-5.2); RDW 14.1 % (11.6-15.6); WHITE BLOOD COUNT 6.4 K/mm3 (4.0-10.0)
[2024-06-01 09:53] LABS: CHLORIDE 108 mmol/L (98-107); POTASSIUM 3.5 mmol/L (3.5-5.1); SODIUM 139 mmol/L (136-145)
[2024-06-01 09:55] LABS: ANION GAP 9 mmol/L (4-13); BLOOD UREA NITROGEN 11.8 mg/dL (7-18); CALCIUM 9.8 mg/dL (8.5-10.1); CO2 22 mmol/L (21-32); GLUCOSE,RANDOM 98 mg/dL (74-106); MAGNESIUM 2.2 mg/dL (1.8-2.4)
[2024-06-01 09:58] LABS: CREATININE 1.1 mg/dL (0.55-1.3); SGOT/AST 13 U/L (15-37); SGPT/ALT 20 U/L (13-61)
[2024-06-01] MEDS: GOSERELIN ACETATE 3.6 MG IMPLANT SYRINGE SQ ONE (09:59)
[2024-06-01 10:00] LABS: BILIRUBIN,TOTAL 0.6 mg/dL (0.2-1); TOT PROT 7.8 g/dl (6.4-8.2)
[2024-06-01 10:01] LABS: ALK PHOS 117 U/L (45-117)
[2024-06-01] MEDS: LIDOCAINE HCL 1%, 10 MG/ML (20ML VIAL) ID ONE (10:04)
[2024-06-01 16:29] VITALS: BP 123/80; PULSE 82; RESP 20; TEMP 98
[2024-06-02 08:10] LABS: CARCINOEMBRYONIC ANTIGEN 1.9 ng/mL (0.0-4.7)
== END 2024-06-01 10:30 | disposition home or self-care (01) ==
LOC: J7W 09:18 → JONCCHEMO 09:18
PROVIDERS: ATTEND Internal Medicine Hematology & Oncology
PROC: 3E013GC Introduction of Other Therapeutic Substance into Subcutaneous Tissue, Percutaneous Approach (ICD-10-PCS; principal; 2024-06-01)
DX: Z51.11 Encounter for antineoplastic chemotherapy (principal); C50.919 Malignant neoplasm of unspecified site of unspecified female breast
CPT/HCPCS: 36415; 80053; 82378; 82550; 82670; 83735; 84703; 85025; 86300; 96402; J9202

== ENCOUNTER 2024-07-27 08:43 | Day surgery (SDC) | payer OTHER ==
[2024-07-27 09:39] LABS: BASO % 0.9 % (0-2.0); EOS % 0.4 % (0-4.5); HEMATOCRIT 42.9 % (32.4-45.2); HEMOGLOBIN 14.1 GM/dL (10.7-15.3); LYMPH % 26.9 % (8-40); MCH 29.6 pg (25.7-33.7); MEAN CELL VOLUME 89.6 fl (80-96); MEAN PLT VOLUME 6.8 fl (7.5-11.1); NEUT % 54.8 % (42.8-82.8); PLATELET COUNT 319 10^3/uL (134-434); RBC 4.79 M/mm3 (3.60-5.2); RDW 14.1 % (11.6-15.6); WHITE BLOOD COUNT 4.2 K/mm3 (4.0-10.0)
[2024-07-27 09:59] LABS: CHLORIDE 105 mmol/L (98-107); POTASSIUM 3.5 mmol/L (3.5-5.1); SODIUM 136 mmol/L (136-145)
[2024-07-27 10:02] LABS: CALCIUM 9.3 mg/dL (8.5-10.1)
[2024-07-27 10:03] LABS: ALBUMIN 3.8 g/dl (3.4-5.0); ANION GAP 8 mmol/L (4-13); BLOOD UREA NITROGEN 15.6 mg/dL (7-18); CO2 23 mmol/L (21-32); GLUCOSE,RANDOM 105 mg/dL (74-106); MAGNESIUM 2.4 mg/dL (1.8-2.4)
[2024-07-27 10:06] LABS: CREATININE 1.1 mg/dL (0.55-1.3); SGOT/AST 28 U/L (15-37); SGPT/ALT 36 U/L (13-61)
[2024-07-27] MEDS: GOSERELIN ACETATE 3.6 MG IMPLANT SYRINGE SQ ONE (10:07)
[2024-07-27 10:08] LABS: BILIRUBIN,TOTAL 0.6 mg/dL (0.2-1)
[2024-07-27] MEDS: LIDOCAINE HCL 1%, 10 MG/ML (20ML VIAL) ID ONE (10:08)
[2024-07-27 10:09] LABS: ALK PHOS 111 U/L (45-117)
[2024-07-27 14:44] VITALS: BP 116/77; PULSE 101; RESP 20; TEMP 98.9
[2024-07-28 08:07] LABS: CARCINOEMBRYONIC ANTIGEN 1.8 ng/mL (0.0-4.7)
== END 2024-07-27 10:15 | disposition home or self-care (01) ==
LOC: JONCCHEMO 08:43
PROVIDERS: ATTEND Internal Medicine Hematology & Oncology
DX: Z51.11 Encounter for antineoplastic chemotherapy (principal); C50.919 Malignant neoplasm of unspecified site of unspecified female breast; Z17.0 Estrogen receptor positive status [ER+]
CPT/HCPCS: 36415; 80053; 82378; 82550; 82670; 83735; 84703; 85025; 86300; 96402; J9202

== ENCOUNTER 2024-09-14 09:21 | Day surgery (SDC) | payer OTHER ==
[2024-09-14] MEDS: LIDOCAINE HCL 1%, 10 MG/ML (20ML VIAL) ID ONE (09:38)
[2024-09-14] MEDS: GOSERELIN ACETATE 3.6 MG IMPLANT SYRINGE SQ ONE (09:40)
[2024-09-14 09:48] LABS: ABSOLUTE IMMATURE GRANULOCYTES 0.02 x10^3/uL (0.0-0.031); BASOPHILS # 0.04 x10^3/uL (0.01-0.08); EOSINOPHIL % 1.3 % (0.7-5.8); EOSINOPHILS # 0.11 x10^3/uL (0.04-0.36); HEMATOCRIT 41.5 % (34.1-44.9); HEMOGLOBIN 13.3 g/dL (11.2-15.7); MEAN CELL VOLUME 89.2 fl (79.4-94.8); MEAN PLT VOLUME 8.6 fl (9.4-12.3); MONOCYTE # 0.58 x10^3/uL (0.24-0.86); MONOCYTE % 7.1 % (4.7-12.5); PLATELET COUNT 396 x10^3/uL (182-369); RDW 13.6 % (12.2-17.1)
[2024-09-14 09:55] LABS: INR 0.97 (0.83-1.09); PROTHROMBIN TIME (PATIENT) 10.7 SEC (9.7-13.0)
[2024-09-14 09:57] LABS: ACTIVATED PTT 30.8 SECONDS (25.2-36.5)
[2024-09-14 10:26] LABS: POTASSIUM 3.9 mmol/L (3.5-5.1)
[2024-09-14 10:28] VITALS: BP 115/76; PULSE 85; RESP 20; TEMP 98.4
[2024-09-14 10:28] LABS: CALCIUM 10.1 mg/dL (8.5-10.1); MAGNESIUM 2.1 mg/dL (1.8-2.4)
[2024-09-14 10:32] LABS: CREATININE 0.9 mg/dL (0.55-1.3)
[2024-09-14 10:33] LABS: BILIRUBIN,TOTAL 0.4 mg/dL (0.2-1); TOT PROT 7.7 g/dl (6.4-8.2)
[2024-09-15 08:07] LABS: FOLLICLE STIMULATING HORMONE 11.6 mIU/mL (.); LUTEINIZING HORMONE 1.2 mIU/mL (.)
== END 2024-09-14 09:45 | disposition home or self-care (01) ==
LOC: JONCCHEMO 09:21 → J7W 09:25 → JONCCHEMO 09:45
PROVIDERS: ATTEND Internal Medicine Hematology & Oncology
DX: Z51.11 Encounter for antineoplastic chemotherapy (principal); C50.912 Malignant neoplasm of unspecified site of left female breast
CPT/HCPCS: 36415; 80053; 82378; 82550; 82670; 83001; 83002; 83735; 84703; 85025; 85610; 85730; 86300; 96402; J9202